=== PATIENT | male | born 1955 | race Caucasian/White ===

== ENCOUNTER 2024-12-17 08:37 | Inpatient (IN) | payer MEDICARE ==
[2024-12-17 09:03] LABS: Basophils # (A) 0.04 10*3/uL (0.00-0.10); Basophils % (A) 0.5 %; Eosinophils # (A) 0.07 10*3/uL (0.04-0.35); HCT 36.5 % (39.6-50.0); HGB 11.4 g/dL (13.0-17.0); Lymphocytes # (A) 1.17 10*3/uL (0.90-5.00); MCH 33.2 pg (27.0-32.0); MCHC 31.2 g/dL (32.0-37.0); MCV 106.4 fL (80.0-97.0); Mean Platelet Volume 9.6 fL (9.5-12.2); Monocytes # (A) 0.65 10*3/uL (0.20-1.00); Monocytes % (A) 8.9 %; Neutrophils # (A) 5.25 10*3/uL (1.80-7.70); Neutrophils % (A) 71.7 %; Platelet Count 146 10*3/uL (140-440); RBC 3.43 10*6/uL (4.40-5.60); RDW 11.3 % (11.5-14.5); WBC 7.32 10*3/uL (4.50-10.00)
[2024-12-17] MEDS: ONDANSETRON 4 MG/2 ML VIAL IVP STA (09:04)
[2024-12-17] MEDS: SODIUM CHLORIDE 0.9% 1,000 ML IV ONE (09:04)
[2024-12-17] MEDS: IPRATROPIUM-ALBUTEROL 3 ML NEB INHALATION STA (09:06)
[2024-12-17] MEDS: methylPREDNISolone SOD SUCCI 125 MG/2 ML VIAL IV STA (09:10)
[2024-12-17 09:15] LABS: VBG PCO2 >98 mmHg (37-51)
[2024-12-17 09:18] LABS: Glucose,Whole Blood 111 mg/dL (70-110)
[2024-12-17 09:20] LABS: INR 0.9 (<1.2); Partial Thromboplastin Time 24.9 sec (22.0-30.0); Prothrombin Time 9.8 sec (10.0-12.5)
--- NOTE | 2024-12-17 09:34 | XR ---
EXAMINATION TYPE: XR chest 1V portable DATE OF EXAM: 12/17/2024 COMPARISON: NONE CLINICAL INDICATION: Male, 69 years old with history of altered mental status; TECHNIQUE: Single frontal view of the chest is obtained. FINDINGS: There is no focal air space opacity, pleural effusion, or pneumothorax seen. The cardiac silhouette size is within normal limits. The osseous structures are intact. IMPRESSION: No acute process. [facility], , 12/17/2024 9:32 AM
[2024-12-17 09:35] LABS: ALT 15 U/L (4-49); AST 29 U/L (17-59); African American GFR (CKD) >90 (>60 ml/min/1.73 sqM); Albumin 3.4 g/dL (3.5-5.0); Alcohol <10 mg/dL; Alkaline Phosphatase 97 U/L (38-126); Blood Urea Nitrogen 14 mg/dL (9-20); Calcium 9.5 mg/dL (8.4-10.2); Chloride 81 mmol/L (98-107); Glucose 92 mg/dL (74-99); Non-African American GFR(CKD) >90 (>60 ml/min/1.73 sqM); Potassium 5.3 mmol/L (3.5-5.1); Sodium 132 mmol/L (137-145); Total Bilirubin 0.3 mg/dL (0.2-1.3); Total Protein 5.8 g/dL (6.3-8.2)
[2024-12-17 09:39] LABS: ABG Oxygen Saturation 99.8 % (94-97); ABG PO2 255 mmHg (83-108); Allen Test Performed? Yes
[2024-12-17 09:41] LABS: Anion Gap 0 mmol/L
[2024-12-17 09:45] LABS: ABG PCO2 >98 mmHg (35-45); ABG PH 7.12 (7.35-7.45)
[2024-12-17 09:48] LABS: Carbon Dioxide 51 mmol/L (22-30)
[2024-12-17 10:06] LABS: Appearance,Urine Clear (Clear); Bilirubin,Urine Negative (Negative); Blood,Urine Trace (Negative); Color,Urine Yellow; Glucose,Urine (UA) Negative (Negative); Ketones,Urine Negative (Negative); Leukocyte Esterase,Urine Negative (Negative); Mucus,Urine Rare /hpf; Nitrite,Urine Negative (Negative); PH, Urine 5.5 (5.0-8.0); Protein,Urine 1+ (Negative); RBC,Urine 8 /hpf (0-5); Specific Gravity,Urine 1.018 (1.001-1.035); Squamous Epithelial Cell,Urine <1 /hpf (0-4); Urobilinogen,Urine <2.0 mg/dL (<2.0); WBC,Urine 3 /hpf (0-5)
[2024-12-17 10:10] LABS: Influenza A Not Detected (Not Detectd); Influenza B Not Detected (Not Detectd); RSV Not Detected (Not Detectd)
[2024-12-17 10:42] LABS: Amphetamine Screen,Urine Not Detected (NotDetected); Barbiturate Screen,Urine Not Detected (NotDetected); Benzodiazepines Screen,Urine Not Detected (NotDetected); Cocaine Screen,Urine Not Detected (NotDetected); Methadone Screen, Urine Not Detected (NotDetected); Opiate Screen,Urine Not Detected (NotDetected); Oxycodone Screen, Urine Not Detected (NotDetected); Phencyclidine Screen,Urine Not Detected (NotDetected); Tricyclic Antidepressant,Urine Not Detected (NotDetected); Urn Cannabinoid Scrn Detected (NotDetected)
--- NOTE | 2024-12-17 11:07 | CT ---
EXAMINATION TYPE: CT brain wo con DATE OF EXAM: 12/17/2024 COMPARISON: None CLINICAL INDICATION: Male, 69 years old with history of Altered mental status; PHH, AMS CT DLP: 1222.4 mGycm Automated exposure control for dose reduction was used. Findings: There is marked metallic artifact in the supraclinoid region possibly aneurysm coil. The ventricles, basal cisterns and sulci over the convexities are within normal limits and there is no mass effect or shift of midline structures. No abnormal density is seen throughout the brain parenchyma and there is no acute intra or extra-axia l hemorrhage. The posterior fossa including the brainstem, fourth ventricle and cerebellar pontine angles appear no rmal. Intraorbital contents appear normal and symmetric. Visualized paranasal sinuses and mastoid air cells are well aerated. The calvarium is intact. IMPRESSION: 1. No acute bleed or mass effect. 2. Metallic artifact in the supraclinoid region likely secondary to aneurysm coiling. [facility], Workstation: [id number] 12/17/2024 11:04 AM
[2024-12-17] MEDS ORDERED: IPRATROPIUM-ALBUTEROL 3 ML NEB INHALATION PRN (11:32)
[2024-12-17] MEDS: SODIUM CHLORIDE 0.9% 1,000 ML IV STA (12:00)
--- NOTE | 2024-12-17 12:25 | P.CNPUL ---
History of Present Illness Consult date: 12/17/24 Requesting physician: Sukhwinder Viramontes Reason for consult: dyspnea, cough, COPD, hypoxemia Chief complaint: Shortness of breath. History of present illness: Pulmonary consult dated December 17, 2024. 69-year-old male with a history of severe COPD. The patient presented to the emergency department, with progressive and worsening shortness of breath, and mental status changes. According to his , he was very lethargic and somnolent, and she could not arouse him. He was brought into the emergency department, to be evaluated, and was seen by Dr. Juarez. The patient had a blood gas done, on 100% oxygen, showing a pO2 of 255, pCO2 of 98, and a pH of 7.12. According to his family, the patient does have very severe COPD. In fact, the patient does smoke still. He does use home oxygen, at 4 L, continuously. He does not use CPAP or BiPAP. The patient recently had cataract surgery as well. In addition to COPD, the patient has a history of a cerebral aneurysm, status post coiling, hypertension, hyperlipidemia, and gout. In terms of his breathing medications, he is on albuterol, and Spiriva. In addition, he uses Brovana, and his nebulizer machine. He does see a [facility] accommodation consultant, in [place]. Current laboratory data includes a white count 7.32, hemoglobin 11.4, hematocrit 36.5, and a platelet count of 146,000. Sodium 132, potassium 5.3, chloride 81, CO2 51, BUN 14, and creatinine 0.63. Glucose is 111. Albumin 3.4. Urine is essentially negative. Drug screen was positive for marijuana. Alcohol less than 10. Viral studies were negative. Chest x-ray was only positive for COPD. No acute abnormalities noted. CT of the brain was negative for anything acute. Review of Systems REVIEW OF SYSTEMS: CONSTITUTIONAL: Negative. NEUROLOGIC: Mental status changes. Lethargy, and somnolence. HEENT: Negative. CARDIAC: Negative. PULMONARY: Shortness of breath. GI: Negative. : Negative. RHEUMATOLOGIC: Negative. IMMUNOLOGIC: Negative. ENDOCRINE: Negative. DERMATOLOGIC: Negative. Past Medical History Past Medical History: COPD, Hyperlipidemia, Hypertension, Myocardial Infarction ([place]) History of Any Multi-Drug Resistant Organisms: None Reported Past Surgical History: Unable to Obtain, Heart Catheterization With Stent Additional Past Surgical History / Comment(s): cataract surgery, brain aneurysm repaired Past Psychological History: No Psychological Hx Reported, Unable to Obtain Smoking Status: Current every day smoker Past Alcohol Use History: Occasional Past Drug Use History: None Reported Medications and Allergies Home Medications Medication Instructions Recorded Confirmed Type Albuterol Sulfate [Ventolin HFA] 2 puff INHALATION RT-Q4H PRN 12/17/24 12/17/24 History Arformoterol Tartrate [Brovana] 15 mcg INHALATION RT-BID 12/17/24 12/17/24 History Aspirin EC [Ecotrin Low Dose] 81 mg PO DAILY 12/17/24 12/17/24 History Atorvastatin [Lipitor] 40 mg PO DAILY 12/17/24 12/17/24 History Enalapril [Vasotec] 20 mg PO DAILY 12/17/24 12/17/24 History Fluticasone Nasal [place] [Flonase 2 spray EA NOSTRIL BID PRN 12/17/24 12/17/24 History Nasal [place]] Mirtazapine [Remeron] 15 mg PO HS 12/17/24 12/17/24 History Prednisolone Acetate/Pf See Taper LEFT EYE DIRECTED 12/17/24 12/17/24 History [Prednisolone Acet 1% Eye Drop] Tiotropium [place] [Spiriva] 1 cap INHALATION RT-DAILY 12/17/24 12/17/24 History allopurinoL [Zyloprim] 300 mg PO DAILY 12/17/24 12/17/24 History carvediloL [Coreg] 6.25 mg PO BID-W/MEALS 12/17/24 12/17/24 History Allergies Allergy/AdvReac Type Severity Reaction Status Date / Time No Known Allergies Allergy Verified 12/17/24 11:49 Physical Exam Osteopathic Statement: *. No significant issues noted on an osteopathic structural exam other than those noted in the History and Physical/Consult. Vitals: Vital Signs Temp Pulse Resp BP Pulse Ox FiO2 12/17/24 12:01 76 14 124/66 97 12/17/24 10:32 50 12/17/24 09:58 77 10 L 137/85 100 12/17/24 09:52 60 12/17/24 09:33 77 12/17/24 09:08 100 12/17/24 09:07 78 12/17/24 08:49 79 16 176/69 100 12/17/24 08:48 100 12/17/24 08:39 98.9 F 80 22 153/83 64 L Intake and Output 12/16/24 12/17/24 12/17/24 22:59 06:59 14:59 Other: Weight 68.039 kg No acute distress, lethargic, does arouse, BiPAP mask in place. Unable to respond verbally. HEENT examination is grossly unremarkable. Neck supple. Full range of motion. No adenopathy thyromegaly or neck vein distention. Cardiovascular examination reveals regular rhythm rate. S1-S2 normal. No S3 or S4. No discernible murmur noted. Heart sounds are distant. Lungs reveal severely diminished bilateral breath sounds. Scattered rhonchi. No wheezes. No crackles. Breath sounds equal bilaterally. Abdomen soft without bowel sounds. No masses. Extremities are intact. No cyanosis clubbing or edema. Skin is without rash or lesion. Neurologic examination reveals the patient to be nonverbal at this time. Very lethargic and somnolent. Results - Laboratory Findings CBC and BMP: 12/17/24 08:46 12/17/24 08:46 ABG ABG pH 7.12 (7.35-7.45) L* 12/17/24 09:33 ABG pCO2 >98 mmHg (35-45) H* 12/17/24 09:33 ABG pO2 255 mmHg (83-108) H 12/17/24 09:33 ABG O2 Saturation 99.8 % (94-97) H 12/17/24 09:33 PT/INR, D-dimer PT 9.8 sec (10.0-12.5) L 12/17/24 08:46 INR 0.9 (<1.2) 12/17/24 08:46 Abnormal lab findings: Abnormal Labs 12/17/24 12/17/24 12/17/24 08:46 08:46 08:46 RBC 3.43 L Hgb 11.4 L Hct 36.5 L MCV 106.4 H MCH 33.2 H MCHC 31.2 L Immature Gran # 0.14 H PT 9.8 L ABG pH ABG pCO2 ABG pO2 ABG O2 Saturation VBG pH VBG pCO2 Hemoglobin Sodium 132 L Potassium 5.3 H Chloride 81 L Carbon Dioxide 51 H* Creatinine 0.63 L POC Glucose (mg/dL) Total Protein 5.8 L Albumin 3.4 L Urine Protein Urine Blood Urine RBC Urine Mucus U Marijuana (THC) Screen 12/17/24 12/17/24 12/17/24 08:46 09:17 09:33 RBC Hgb Hct MCV MCH MCHC Immature Gran # PT ABG pH 7.12 L* ABG pCO2 >98 H* ABG pO2 255 H ABG O2 Saturation 99.8 H VBG pH 7.30 L VBG pCO2 >98 H* Hemoglobin 11.0 L Sodium Potassium Chloride Carbon Dioxide Creatinine POC Glucose (mg/dL) 111 H Total Protein Albumin Urine Protein Urine Blood Urine RBC Urine Mucus U Marijuana (THC) Screen 12/17/24 12/17/24 09:46 09:46 RBC Hgb Hct MCV MCH MCHC Immature Gran # PT ABG pH ABG pCO2 ABG pO2 ABG O2 Saturation VBG pH VBG pCO2 Hemoglobin Sodium Potassium Chloride Carbon Dioxide Creatinine POC Glucose (mg/dL) Total Protein Albumin Urine Protein 1+ H Urine Blood Trace H Urine RBC 8 H Urine Mucus Rare H U Marijuana (THC) Screen Detected H - Diagnostic Findings Chest x-ray: image reviewed Assessment and Plan Assessment: Acute on chronic hypoxemic and hypercapnic respiratory failure, in a patient with severe end-stage COPD. Chronic hypoxemic respiratory failure, on home O2 at 4 L. Ongoing tobacco use with nicotine addiction. History of gout. History of hypertension. History of hyperlipidemia. Recent cataract surgery. History of cerebral aneurysm, status post coiling. Plan: Plan dated December 17, 2024. The patient was seen in the emergency department, ER trauma 2. The patient is currently on BiPAP, with settings of 12/6 and 50%. The patient is a significant CO2 retainer, so oxygen should be titrated down. The patient is placed on appropriate medications, including Solu-Medrol 60 mg every 6 hours, DuoNebs 4 times daily and as needed, and budesonide 1 mg mixed with formoterol 20 mcg, twice a day. We had a long discussion with the and the daughter. The patient is a DO NOT RESUSCITATE/DO NOT INTUBATE patient. They realize that the patient has severe end-stage COPD. We told them that we would do everything short of intubation and mechanical ventilation, to get him turned around. Labs, x-rays, and all medications are reviewed. Chest x-ray does not show anything acute. Prognosis is poor. Dictation was produced using [employer]. Please excuse any grammatical, word or spelling errors. Time with Patient: Greater than 30
[2024-12-17] MEDS: IPRATROPIUM-ALBUTEROL 3 ML NEB INHALATION SCH (12:29)
[2024-12-17] MEDS ORDERED: ONDANSETRON 4 MG/2 ML VIAL IVP PRN (12:40)
[2024-12-17] MEDS ORDERED: NALOXONE 0.4 MG/ML 1 ML VIAL IV PRN (12:40)
--- NOTE | 2024-12-17 12:43 | ED ---
General Adult HPI - General Chief complaint: Altered Mental Status Stated complaint: cardiac issue Time Seen by Provider: 12/17/24 08:40 Source: family, RN/MD, RN notes reviewed, old records reviewed Mode of arrival: EMS - History of Present Illness Initial comments: Patient is a 69-year-old male who presents emergency department for altered mental status. Presents from home. Has a history of COPD on 4 L nasal cannula oxygen, hypertension, hyperlipidemia, CAD. Patient is normally alert and oriented x 4 however currently is alert and oriented x 1 only to his self. Patient is hypoxic on his 4 L nasal cannula oxygen in the 70%'s. Cannot provide any further history. EMS did obtain a EKG that had a lot of artifact present and they called ahead and wanted us to evaluate for possible ST segment elevations. They gave him aspirin as well as nitroglycerin despite the patient not complaining of any chest pain. On evaluation, no evidence of ST segment elevations prior to arrival. I did convey this to the EMS team who provided medications irregardless. - Related Data Home Medications Medication Instructions Recorded Confirmed Albuterol Sulfate [Ventolin HFA] 2 puff INHALATION RT-Q4H PRN 12/17/24 12/17/24 Arformoterol Tartrate [Brovana] 15 mcg INHALATION RT-BID 12/17/24 12/17/24 Aspirin EC [Ecotrin Low Dose] 81 mg PO DAILY 12/17/24 12/17/24 Atorvastatin [Lipitor] 40 mg PO DAILY 12/17/24 12/17/24 Enalapril [Vasotec] 20 mg PO DAILY 12/17/24 12/17/24 Fluticasone Nasal [place] [Flonase 2 spray EA NOSTRIL BID PRN 12/17/24 12/17/24 Nasal [place]] Mirtazapine [Remeron] 15 mg PO HS 12/17/24 12/17/24 Prednisolone Acetate/Pf See Taper LEFT EYE DIRECTED 12/17/24 12/17/24 [Prednisolone Acet 1% Eye Drop] Tiotropium [place] [Spiriva] 1 cap INHALATION RT-DAILY 12/17/24 12/17/24 allopurinoL [Zyloprim] 300 mg PO DAILY 12/17/24 12/17/24 carvediloL [Coreg] 6.25 mg PO BID-W/MEALS 12/17/24 12/17/24 Allergies Allergy/AdvReac Type Severity Reaction Status Date / Time No Known Allergies Allergy Verified 12/17/24 11:49 Review of Systems ROS Statement: Those systems with pertinent positive or pertinent negative responses have been documented in the HPI. ROS Other: All systems not noted in ROS Statement are negative. Past Medical History Past Medical History: COPD, Hyperlipidemia, Hypertension, Myocardial Infarction ([place]) History of Any Multi-Drug Resistant Organisms: None Reported Past Surgical History: Unable to Obtain, Heart Catheterization With Stent Additional Past Surgical History / Comment(s): cataract surgery, brain aneurysm repaired Past Psychological History: No Psychological Hx Reported, Unable to Obtain Smoking Status: Current every day smoker Past Alcohol Use History: Occasional Past Drug Use History: None Reported General Exam - General Exam Comments Initial Comments: General: Appears in no acute distress. HEAD: Normal with no signs of head trauma. EYES: PERRLA, EOMI, conjunctiva normal, no discharge. Pupils are 3 mm and equal bilaterally. ENT: Hearing grossly intact, normal oropharynx. RESPIRATORY: Coarse, bilateral wheezing bilaterally. Hypoxic in the 60% room air, mid 70%'s on 4 L nasal cannula oxygen and 6 L nasal cannula oxygen., 90% on nasal cannula oxygen at 6 L as well as a nonrebreather at 15 L C/V: Regular rate and rhythm. S1 and S2 auscultated, no significant edema, peripheral pulses 2+ and intact throughout ABD: Abd is soft, nontender, nondistended EXT: Normal range of motion, no obvious deformity SKIN: No rashes or lesions observed on exposed skin. NEURO: Alert and oriented x 1. No obvious focal deficits. Difficult to obtain a sufficient neuroexam due to mental status. Course Vital Signs 12/17/24 12/17/24 12/17/24 08:39 08:48 08:49 Temperature 98.9 F Pulse Rate 80 79 Respiratory 22 16 Rate Blood Pressure 153/83 176/69 O2 Sat by Pulse 64 L 100 Oximetry Fraction of 100 Inspired Oxygen (FIO2) 12/17/24 12/17/24 12/17/24 09:07 09:08 09:33 Temperature Pulse Rate 78 77 Respiratory Rate Blood Pressure O2 Sat by Pulse Oximetry Fraction of 100 Inspired Oxygen (FIO2) 12/17/24 12/17/24 12/17/24 09:52 09:58 10:32 Temperature Pulse Rate 77 Respiratory 10 L Rate Blood Pressure 137/85 O2 Sat by Pulse 100 Oximetry Fraction of 60 50 Inspired Oxygen (FIO2) 12/17/24 12/17/24 12/17/24 12:01 12:29 12:33 Temperature Pulse Rate 76 78 Respiratory 14 Rate Blood Pressure 124/66 O2 Sat by Pulse 97 Oximetry Fraction of 50 Inspired Oxygen (FIO2) 12/17/24 12/17/24 12:43 13:07 Temperature Pulse Rate 77 79 Respiratory 14 Rate Blood Pressure 144/77 O2 Sat by Pulse 98 Oximetry Fraction of Inspired Oxygen (FIO2) Procedures - [place] Protocol (Time Out) Nurse: Heidi Mcallister Medical Decision Making - Medical Decision Making Was pt. sent in by a medical professional or institution (, PA, HR REPRESENTATIVE, urgent care, hospital, or penitentiary...) When possible be specific @ -No Did you speak to anyone other than the patient for history (EMS, parent, family, police, friend...)? What history was obtained from this source @ -Spoke with patient's who provided past medical history of patient being more confused over the last 2 days or so as well as increased work of breathing. Did you review nursing and triage notes (agree or disagree)? Why? @ -I reviewed and agree with nursing and triage notes Were old charts reviewed (outside hosp., previous admission, EMS record, old EKG, old radiological studies, urgent care reports/EKG's, penitentiary records)? Report findings @ -Reviewed showing history of COPD Differential Diagnosis (chest pain, altered mental status, abdominal pain women, abdominal pain men, vaginal bleeding, weakness, fever, dyspnea, syncope, headache, dizziness, GI bleed, back pain, seizure, CVA, palpatations, mental health, musculoskeletal)? @ -Differential Altered Mental Status: Hypoglycemia, DKA, hypercapnia, ETOH, overdose, CO poisoning, trauma, myxedema coma, HTN encephalopathy, infection, encephalitis, psychosis, intercranial hemorrhage, hepatic encephalopathy, meningitis, CVA, this is not meant to be an all-inclusive list EKG interpreted by me (3pts min.). @ -As above X-rays interpreted by me (1pt min.). @ -Chest x-ray reveals chronic findings with no evidence of acute pneumonia or acute process CT interpreted by me (1pt min.). @ -CT brain reveals no obvious acute intracranial process. Prior aneurysm coiling present. U/S interpreted by me (1pt. min.). @ -None done What testing was considered but not performed or refused? (CT, X-rays, U/S, labs)? Why? @ -None What meds were considered but not given or refused? Why? @ -None Did you discuss the management of the patient with other professionals (professionals i.e. Dr., PA, HR REPRESENTATIVE, lab, RT, psych nurse, social work supervisor, manager social, teacher, cavalry officer, comp field case manager)? Give summary @ -Discussed with pulmonology, Dr. Us who accepted the consult. Evaluate the patient at bedside and patient determined stable enough to admit to stepdown. Discussed the patient with admitting team, Dr. Ohara who accepted the admi ssion. Was smoking cessation discussed for >3mins.? @ -No Was critical care preformed (if so, how long)? @ -Yes, 41 minutes Were there social determinants of health that impacted care today? How? (H omelessness, low income, unemployed, alcoholism, drug addiction, transportation, low edu. Level, literacy, decrease access to med. care, custodial, rehab)? @ -No Was there de-escalation of care discussed even if they declined (Discuss DNR or withdrawal of care, Hospice)? DNR status @ -Discussed at length with patient's who would like to discuss with her daughter. After discussion, they determined that they will make the patient DNR. Patient is not alert to make his own decision. No prior discussion of prior paperwork regarding this was made per family. What co-morbidities impacted this encounter? (DM, HTN, Smoking, COPD, CAD, Cancer, CVA, ARF, Chemo, Hep., AIDS, mental health diagnosis, sleep apnea, morbid obesity)? @ -COPD, chronic hypoxic respiratory failure. Was patient admitted / discharged? Hospital course, mention meds given and route, prescriptions, significant lab abnormalities, going to OR and other pertinent info. @ -Patient presents with respiratory distress. Vitals remarkable for hypoxia. Patient initially placed on BiPAP after nonrebreather and nasal cannula oxygen only sufficiently bring his oxygenation up to 90%. Patient's work of breathing and hypoxia did improve on BiPAP. Patient administered IV steroids, fluids, as well as multiple DuoNeb breathing treatments. Will obtain broad workup. He is confused at this time. Likely secondary to hypercapnia. EKG showed no signs of acute ischemia. Chest x-ray unremarkable. CT brain unremarkable. Laboratory studies remarkable for a respiratory acidosis and hypercapnia. This is likely the cause of the patient's altered mental status. Remainder the patient's workup relatively unremarkable. No obvious evidence of infection. Urine studies pending at this time. On reevaluation, mentation is improved, as he is now alert and oriented x 2 and more easily arousable. Discussed with patient's family who did make the patient DNR. This includes the as well as daughter. Patient will be admitted to the hospital. Discussed with ICU attending, Dr. Us who evaluated the patient at bedside and he determined that he is stable for admission to [facility]. Discussed with the admitting provider, Dr. Ohara who accepted the admission. Undiagnosed new problem with uncertain prognosis? @ -No Drug Therapy requiring intensive monitoring for toxicity (Heparin, Nitro, Insulin, Cardizem)? @ -No Were any procedures done? @ -No Diagnosis/symptom? @ -Mixed hypoxic and hypercapnic respiratory failure secondary to COPD requiring BiPAP, altered mental status Acute, or Chronic, or Acute on Chronic? @ -Acute Uncomplicated (without systemic symptoms) or Complicated (systemic symptoms)? @ -Complicated Side effects of treatment? @ -No Exacerbation, Progression, or Severe Exacerbation? @ -No Poses a threat to life or bodily function? How? (Chest pain, [place], [place], pneumonia, PE, COPD, DKA, ARF, appy, cholecystitis, CVA, Diverticulitis, Homicidal, Suicidal, threat to staff... and all critical care pts) @ -Yes - Lab Data Result diagrams: 12/17/24 08:46 12/17/24 08:46 Lab Results 12/17/24 12/17/24 12/17/24 Range/Units 08:46 08:46 08:46 WBC 7.32 (4.50-10.00) 10*3/uL RBC 3.43 L (4.40-5.60) 10*6/uL Hgb 11.4 L (13.0-17.0) g/dL Hct 36.5 L (39.6-50.0) % MCV 106.4 H (80.0-97.0) fL MCH 33.2 H (27.0-32.0) pg MCHC 31.2 L (32.0-37.0) g/dL Plt Count 146 (140-440) 10*3/uL MPV 9.6 (9.5-12.2) fL Immature Gran % (Auto) 1.9 % Neutrophils % 71.7 % Lymphocytes % 16.0 % Monocytes % 8.9 % Eosinophils % 1.0 % Basophils % 0.5 % Immature Gran # 0.14 H (0.00-0.04) 10*3/uL Neutrophils # 5.25 (1.80-7.70) 10*3/uL Lymphocytes # 1.17 (0.90-5.00) 10*3/uL Monocytes # 0.65 (0.20-1.00) 10*3/uL Eosinophils # 0.07 (0.04-0.35) 10*3/uL Basophils # 0.04 (0.00-0.10) 10*3/uL Manual Slide Review Performed PT 9.8 L (10.0-12.5) sec INR 0.9 (<1.2) APTT 24.9 (22.0-30.0) sec Sample Site ABG pH (7.35-7.45) ABG pCO2 (35-45) mmHg ABG pO2 (83-108) mmHg ABG O2 Saturation (94-97) % Kristian Test VBG pH (7.31-7.41) VBG pCO2 (37-51) mmHg Hemoglobin (13.0-17.5) gm/dL FiO2 % Sodium 132 L (137-145) mmol/L Potassium 5.3 H (3.5-5.1) mmol/L Chloride 81 L (98-107) mmol/L Carbon Dioxide 51 H* (22-30) mmol/L Anion Gap 0 mmol/L BUN 14 (9-20) mg/dL Creatinine 0.63 L (0.66-1.25) mg/dL Est GFR (CKD-EPI)AfAm >90 (>60 ml/min/1.73 sqM) Est GFR (CKD-EPI)NonAf >90 (>60 ml/min/1.73 sqM) Glucose 92 (74-99) mg/dL POC Glucose (mg/dL) (70-110) mg/dL POC Glu Biomedical Electronics Technician ID Calcium 9.5 (8.4-10.2) mg/dL Total Bilirubin 0.3 (0.2-1.3) mg/dL AST 29 (17-59) U/L ALT 15 (4-49) U/L Alkaline Phosphatase 97 (38-126) U/L Ammonia (<30) umol/L Troponin I (0.000-0.034) ng/mL Total Protein 5.8 L (6.3-8.2) g/dL Albumin 3.4 L (3.5-5.0) g/dL Urine Color Urine Appearance (Clear) Urine pH (5.0-8.0) Ur Specific [place] (1.001-1.035) Urine Protein (Negative) Urine Glucose (UA) (Negative) Urine Ketones (Negative) Urine Blood (Negative) Urine Nitrite (Negative) Urine Bilirubin (Negative) Urine Urobilinogen (<2.0) mg/dL Ur Leukocyte Esterase (Negative) Urine RBC (0-5) /hpf Urine WBC (0-5) /hpf Ur Squamous Epith Cells (0-4) /hpf Urine Mucus (None) /hpf Urine Opiates Screen (NotDetected) Ur Oxycodone Screen (NotDetected) Urine Methadone Screen (NotDetected) Ur Barbiturates Screen (NotDetected) U Tricyclic Antidepress (NotDetected) Ur Phencyclidine Scrn (NotDetected) Ur Amphetamines Screen (NotDetected) U Methamphetamines Scrn (NotDetected) U Benzodiazepines Scrn (NotDetected) Urine Cocaine Screen (NotDetected) U Marijuana (THC) Screen (NotDetected) Serum Alcohol <10 mg/dL Influenza Type A (PCR) (Not Detectd) Influenza Type B (PCR) (Not Detectd) RSV (PCR) (Not Detectd) SARS-CoV-2 (PCR) (Not Detectd) 12/17/24 12/17/24 12/17/24 Range/Units 08:46 08:46 08:46 WBC (4.50-10.00) 10*3/uL RBC (4.40-5.60) 10*6/uL Hgb (13.0-17.0) g/dL Hct (39.6-50.0) % MCV (80.0-97.0) fL MCH (27.0-32.0) pg MCHC (32.0-37.0) g/dL Plt Count (140-440) 10*3/uL MPV (9.5-12.2) fL Immature Gran % (Auto) % Neutrophils % % Lymphocytes % % Monocytes % % Eosinophils % % Basophils % % Immature Gran # (0.00-0.04) 10*3/uL Neutrophils # (1.80-7.70) 10*3/uL Lymphocytes # (0.90-5.00) 10*3/uL Monocytes # (0.20-1.00) 10*3/uL Eosinophils # (0.04-0.35) 10*3/uL Basophils # (0.00-0.10) 10*3/uL Manual Slide Review PT (10.0-12.5) sec INR (<1.2) APTT (22.0-30.0) sec Sample Site ABG pH (7.35-7.45) ABG pCO2 (35-45) mmHg ABG pO2 (83-108) mmHg ABG O2 Saturation (94-97) % Kristian Test VBG pH 7.30 L (7.31-7.41) VBG pCO2 >98 H* (37-51) mmHg Hemoglobin (13.0-17.5) gm/dL FiO2 % Sodium (137-145) mmol/L Potassium (3.5-5.1) mmol/L Chloride (98-107) mmol/L Carbon Dioxide (22-30) mmol/L Anion Gap mmol/L BUN (9-20) mg/dL Creatinine (0.66-1.25) mg/dL Est GFR (CKD-EPI)AfAm (>60 ml/min/1.73 sqM) Est GFR (CKD-EPI)NonAf (>60 ml/min/1.73 sqM) Glucose (74-99) mg/dL POC Glucose (mg/dL) (70-110) mg/dL POC Glu Biomedical Electronics Technician ID Calcium (8.4-10.2) mg/dL Total Bilirubin (0.2-1.3) mg/dL AST (17-59) U/L ALT (4-49) U/L Alkaline Phosphatase (38-126) U/L Ammonia 20 (<30) umol/L Troponin I 0.019 (0.000-0.034) ng/mL Total Protein (6.3-8.2) g/dL Albumin (3.5-5.0) g/dL Urine Color Urine Appearance (Clear) Urine pH (5.0-8.0) Ur Specific [place] (1.001-1.035) Urine Protein (Negative) Urine Glucose (UA) (Negative) Urine Ketones (Negative) Urine Blood (Negative) Urine Nitrite (Negative) Urine Bilirubin (Negative) Urine Urobilinogen (<2.0) mg/dL Ur Leukocyte Esterase (Negative) Urine RBC (0-5) /hpf Urine WBC (0-5) /hpf Ur Squamous Epith Cells (0-4) /hpf Urine Mucus (None) /hpf Urine Opiates Screen (NotDetected) Ur Oxycodone Screen (NotDetected) Urine Methadone Screen (NotDetected) Ur Barbiturates Screen (NotDetected) U Tricyclic Antidepress (NotDetected) Ur Phencyclidine Scrn (NotDetected) Ur Amphetamines Screen (NotDetected) U Methamphetamines Scrn (NotDetected) U Benzodiazepines Scrn (NotDetected) Urine Cocaine Screen (NotDetected) U Marijuana (THC) Screen (NotDetected) Serum Alcohol mg/dL Influenza Type A (PCR) (Not Detectd) Influenza Type B (PCR) (Not Detectd) RSV (PCR) (Not Detectd) SARS-CoV-2 (PCR) (Not Detectd) 12/17/24 12/17/24 12/17/24 Range/Units 09:17 09:29 09:33 WBC (4.50-10.00) 10*3/uL RBC (4.40-5.60) 10*6/uL Hgb (13.0-17.0) g/dL Hct (39.6-50.0) % MCV (80.0-97.0) fL MCH (27.0-32.0) pg MCHC (32.0-37.0) g/dL Plt Count (140-440) 10*3/uL MPV (9.5-12.2) fL Immature Gran % (Auto) % Neutrophils % % Lymphocytes % % Monocytes % % Eosinophils % % Basophils % % Immature Gran # (0.00-0.04) 10*3/uL Neutrophils # (1.80-7.70) 10*3/uL Lymphocytes # (0.90-5.00) 10*3/uL Monocytes # (0.20-1.00) 10*3/uL Eosinophils # (0.04-0.35) 10*3/uL Basophils # (0.00-0.10) 10*3/uL Manual Slide Review PT (10.0-12.5) sec INR (<1.2) APTT (22.0-30.0) sec Sample Site Left Radial ABG pH 7.12 L* (7.35-7.45) ABG pCO2 >98 H* (35-45) mmHg ABG pO2 255 H (83-108) mmHg ABG O2 Saturation 99.8 H (94-97) % Kristian Test Yes VBG pH (7.31-7.41) VBG pCO2 (37-51) mmHg Hemoglobin 11.0 L (13.0-17.5) gm/dL FiO2 100 % Sodium (137-145) mmol/L Potassium (3.5-5.1) mmol/L Chloride (98-107) mmol/L Carbon Dioxide (22-30) mmol/L Anion Gap mmol/L BUN (9-20) mg/dL Creatinine (0.66-1.25) mg/dL Est GFR (CKD-EPI)AfAm (>60 ml/min/1.73 sqM) Est GFR (CKD-EPI)NonAf (>60 ml/min/1.73 sqM) Glucose (74-99) mg/dL POC Glucose (mg/dL) 111 H (70-110) mg/dL POC Glu Biomedical Electronics Technician ID Kristian [place] Calcium (8.4-10.2) mg/dL Total Bilirubin (0.2-1.3) mg/dL AST (17-59) U/L ALT (4-49) U/L Alkaline Phosphatase (38-126) U/L Ammonia (<30) umol/L Troponin I (0.000-0.034) ng/mL Total Protein (6.3-8.2) g/dL Albumin (3.5-5.0) g/dL Urine Color Urine Appearance (Clear) Urine pH (5.0-8.0) Ur Specific [place] (1.001-1.035) Urine Protein (Negative) Urine Glucose (UA) (Negative) Urine Ketones (Negative) Urine Blood (Negative) Urine Nitrite (Negative) Urine Bilirubin (Negative) Urine Urobilinogen (<2.0) mg/dL Ur Leukocyte Esterase (Negative) Urine RBC (0-5) /hpf Urine WBC (0-5) /hpf Ur Squamous Epith Cells (0-4) /hpf Urine Mucus (None) /hpf Urine Opiates Screen (NotDetected) Ur Oxycodone Screen (NotDetected) Urine Methadone Screen (NotDetected) Ur Barbiturates Screen (NotDetected) U Tricyclic Antidepress (NotDetected) Ur Phencyclidine Scrn (NotDetected) Ur Amphetamines Screen (NotDetected) U Methamphetamines Scrn (NotDetected) U Benzodiazepines Scrn (NotDetected) Urine Cocaine Screen (NotDetected) U Marijuana (THC) Screen (NotDetected) Serum Alcohol mg/dL Influenza Type A (PCR) Not Detected (Not Detectd) Influenza Type B (PCR) Not Detected (Not Detectd) RSV (PCR) Not Detected (Not Detectd) SARS-CoV-2 (PCR) Not Detected (Not Detectd) 12/17/24 12/17/24 Range/Units 09:46 09:46 WBC (4.50-10.00) 10*3/uL RBC (4.40-5.60) 10*6/uL Hgb (13.0-17.0) g/dL Hct (39.6-50.0) % MCV (80.0-97.0) fL MCH (27.0-32.0) pg MCHC (32.0-37.0) g/dL Plt Count (140-440) 10*3/uL MPV (9.5-12.2) fL Immature Gran % (Auto) % Neutrophils % % Lymphocytes % % Monocytes % % Eosinophils % % Basophils % % Immature Gran # (0.00-0.04) 10*3/uL Neutrophils # (1.80-7.70) 10*3/uL Lymphocytes # (0.90-5.00) 10*3/uL Monocytes # (0.20-1.00) 10*3/uL Eosinophils # (0.04-0.35) 10*3/uL Basophils # (0.00-0.10) 10*3/uL Manual Slide Review PT (10.0-12.5) sec INR (<1.2) APTT (22.0-30.0) sec Sample Site ABG pH (7.35-7.45) ABG pCO2 (35-45) mmHg ABG pO2 (83-108) mmHg ABG O2 Saturation (94-97) % Kristian Test VBG pH (7.31-7.41) VBG pCO2 (37-51) mmHg Hemoglobin (13.0-17.5) gm/dL FiO2 % Sodium (137-145) mmol/L Potassium (3.5-5.1) mmol/L Chloride (98-107) mmol/L Carbon Dioxide (22-30) mmol/L Anion Gap mmol/L BUN (9-20) mg/dL Creatinine (0.66-1.25) mg/dL Est GFR (CKD-EPI)AfAm (>60 ml/min/1.73 sqM) Est GFR (CKD-EPI)NonAf (>60 ml/min/1.73 sqM) Glucose (74-99) mg/dL POC Glucose (mg/dL) (70-110) mg/dL POC Glu Biomedical Electronics Technician ID Calcium (8.4-10.2) mg/dL Total Bilirubin (0.2-1.3) mg/dL AST (17-59) U/L ALT (4-49) U/L Alkaline Phosphatase (38-126) U/L Ammonia (<30) umol/L Troponin I (0.000-0.034) ng/mL Total Protein (6.3-8.2) g/dL Albumin (3.5-5.0) g/dL Urine Color Yellow Urine Appearance Clear (Clear) Urine pH 5.5 (5.0-8.0) Ur Specific [place] 1.018 (1.001-1.035) Urine Protein 1+ H (Negative) Urine Glucose (UA) Negative (Negative) Urine Ketones Negative (Negative) Urine Blood Trace H (Negative) Urine Nitrite Negative (Negative) Urine Bilirubin Negative (Negative) Urine Urobilinogen <2.0 (<2.0) mg/dL Ur Leukocyte Esterase Negative (Negative) Urine RBC 8 H (0-5) /hpf Urine WBC 3 (0-5) /hpf Ur Squamous Epith Cells <1 (0-4) /hpf Urine Mucus Rare H (None) /hpf Urine Opiates Screen Not Detected (NotDetected) Ur Oxycodone Screen Not Detected (NotDetected) Urine Methadone Screen Not Detected (NotDetected) Ur Barbiturates Screen Not Detected (NotDetected) U Tricyclic Antidepress Not Detected (NotDetected) Ur Phencyclidine Scrn Not Detected (NotDetected) Ur Amphetamines Screen Not Detected (NotDetected) U Methamphetamines Scrn Not Detected (NotDetected) U Benzodiazepines Scrn Not Detected (NotDetected) Urine Cocaine Screen Not Detected (NotDetected) U Marijuana (THC) Screen Detected H (NotDetected) Serum Alcohol mg/dL Influenza Type A (PCR) (Not Detectd) Influenza Type B (PCR) (Not Detectd) RSV (PCR) (Not Detectd) SARS-CoV-2 (PCR) (Not Detectd) - EKG Data -: EKG Interpreted by Me EKG Comments: 12-lead Electrocardiogram Interpretation Note EKG was reviewed and interpreted by myself. 12-lead ECG performed at 0909 is interpreted by me as revealing normal sinus rhythm at a rate of 76 beats per minute. [place] is leftward deviated. MA interval is 168 ms, QRS durations 140 ms, QTc is 426 ms.. There were no ST or T wave abnormalities to suggest myoca rdial ischemia or injury. R wave progression across the precordium was satisfactory. By my interpretation this EKG is non-diagnostic for acute ischemia. Critical Care Time Critical Care Time: Yes Total Critical Care Time: 41 Disposition Clinical Impression: Hypercapnic respiratory failure, Altered mental status, Hypoxic respiratory failure, COPD (chronic obstructive pulmonary disease), BiPAP (biphasic positive airway pressure) dependence Disposition: ADMITTED IP TO THIS HOSP Condition: Serious Time of Disposition: 12:00
[2024-12-17] MEDS: methylPREDNISolone SOD SUCCI 125 MG/2 ML VIAL IV SCH (14:39)
--- NOTE | 2024-12-17 15:31 | P.HPIM ---
History of Present Illness H&P Date: 12/17/24 History of present illness: 69-year-old male with past medical history significant for severe COPD on 4 L oxygen at baseline, history of cerebral aneurysm status post coiling, gout history of hypertension, hyperlipidemia, [place], history of cardiac catheterization who presented to ER with family for altered mental status, progressively worsening shortness of breath and productive cough. Patient's and daughter at bedside, they reported that patient was very lethargic and somnolent, was unable to arouse. Family reported severe COPD, on 4 L oxygen at baseline, current smoker, does not use CPAP or BiPAP, recently had a cataract surgery. Patient is poor historian, currently on BiPAP. Blood gases in the ED done on 100% oxygen showed pO2 255 pCO2 98, pH 7.12. Home inhalers include albuterol, Spiriva. In addition he uses Brovana, nebulizer machine. Patient follows with broadcast technician in [place]. Patient is afebrile, heart rate 79, respiratory rate 13, blood pressure 147/67, saturating 96% on BiPAP with 50% FiO2. WBC 7.3 hemoglobin 11.4 platelet 146. Sodium 132 potassium 5.3 chloride 81 CO2 51 BUN 14 creatinine 0.63. ABG showed pH 7.12, PaCO2 more than 98, PO2 255. Chest x-ray negative for acute process. Urine drug screen positive for marijuana. COVID influenza and RSV PCR negative. Assessment and plan: Acute on chronic hypoxic hypercapnic respiratory failure: Severe end-stage COPD: Chronic hypoxic respiratory failure on 4 L oxygen at baseline Ongoing tobacco use: Acute metabolic encephalopathy: Brought in for altered mental status, worsening shortness of breath, cough. ABG showed severe hypercapnia with pCO2 of more than 98 Requiring BiPAP Continue breathing treatment/bronchodilator protocol, Solu-Medrol Pulmonary consulted. History of hypertension Hyperlipidemia Recent cataract surgery History of cerebral aneurysm s/p coiling Gout: DVT prophylaxis Subcutaneous Lovenox CODE STATUS: DNR limited Monitor vital signs and labs Labs and medication were reviewed. Continue same treatment. Further recommendations as per clinical course of the patient PHYSICAL EXAMINATION: GENERAL: Currently BiPAP HEENT: EOMI, Sclerae anicteric, Moist Mucous membranes Neck: Supple, Non tender, No JVD PULMONARY: Equal breath souds B/L, No wheezing, No crackles. CARDIOVASCULAR: S1, S2 present. No murmurs, rubs, or gallops. ABDOMEN: Soft, nontender, nondistended, normoactive bowel sounds. No guarding or rebound tenderness. MUSCULOSKELETAL: No edema, No cyanosis. No clubbing. Normal ROM. Intact p eripheral pulses. NEUROLOGICAL: CN 2-12 grossly intact. No FND REVIEW OF SYSTEMS: Limited due to altered mental status. CONSTITUTIONAL: No fever, no malaise, no fatigue. HEENT: No recent visual problems or hearing problems. Denied any sore throat. CARDIOVASCULAR: No chest pain, orthopnea, PND, no palpitations, no syncope. PULMONARY: Complains of shortness of breath, productive cough. GASTROINTESTINAL: No diarrhea, no nausea, no vomiting, no abdominal pain. NEUROLOGICAL: No headaches, no weakness, no numbness. HEMATOLOGICAL: Denies any bleeding or petechiae. GENITOURINARY: Denies any burning micturition, frequency, or urgency. MUSCULOSKELETAL/RHEUMATOLOGICAL: Denies any joint pain, swelling, or any muscle pain. ENDOCRINE: Denies any polyuria or polydipsia. The rest of the 14-point review of systems is negative. Dictation was produced using [employer] software. please excuse any grammatical, word or spelling errors. Past Medical History Past Medical History: COPD, Hyperlipidemia, Hypertension, Myocardial Infarction ([place]) Last Myocardial Infarction Date:: 1999 History of Any Multi-Drug Resistant Organisms: None Reported Past Surgical History: Unable to Obtain, Heart Catheterization With Stent Additional Past Surgical History / Comment(s): cataract surgery, brain aneurysm repaired Date of Last Stent Placement:: 1999 Past Psychological History: No Psychological Hx Reported, Unable to Obtain Smoking Status: Current every day smoker Past Alcohol Use History: Occasional Past Drug Use History: None Reported Medications and Allergies Home Medications Medication Instructions Recorded Confirmed Type Albuterol Sulfate [Ventolin HFA] 2 puff INHALATION RT-Q4H PRN 12/17/24 12/17/24 History Arformoterol Tartrate [Brovana] 15 mcg INHALATION RT-BID 12/17/24 12/17/24 History Aspirin EC [Ecotrin Low Dose] 81 mg PO DAILY 12/17/24 12/17/24 History Atorvastatin [Lipitor] 40 mg PO DAILY 12/17/24 12/17/24 History Enalapril [Vasotec] 20 mg PO DAILY 12/17/24 12/17/24 History Fluticasone Nasal [place] [Flonase 2 spray EA NOSTRIL BID PRN 12/17/24 12/17/24 History Nasal [place]] Mirtazapine [Remeron] 15 mg PO HS 12/17/24 12/17/24 History Prednisolone Acetate/Pf See Taper LEFT EYE DIRECTED 12/17/24 12/17/24 History [Prednisolone Acet 1% Eye Drop] Tiotropium [place] [Spiriva] 1 cap INHALATION RT-DAILY 12/17/24 12/17/24 History allopurinoL [Zyloprim] 300 mg PO DAILY 12/17/24 12/17/24 History carvediloL [Coreg] 6.25 mg PO BID-W/MEALS 12/17/24 12/17/24 History Allergies Allergy/AdvReac Type Severity Reaction Status Date / Time No Known Allergies Allergy Verified 12/17/24 11:49 Physical Exam Vitals: Vital Signs Temp Pulse Pulse Resp BP BP Pulse Ox 12/17/24 14:47 13 12/17/24 14:06 98.8 F 76 147/67 96 12/17/24 13:07 79 14 144/77 98 12/17/24 12:43 77 12/17/24 12:33 12/17/24 12:29 78 12/17/24 12:01 76 14 124/66 97 12/17/24 10:32 12/17/24 09:58 77 10 L 137/85 100 12/17/24 09:52 12/17/24 09:33 77 12/17/24 09:08 12/17/24 09:07 78 12/17/24 08:49 79 16 176/69 100 12/17/24 08:48 12/17/24 08:39 98.9 F 80 22 153/83 64 L FiO2 12/17/24 14:47 12/17/24 14:06 50 12/17/24 13:07 12/17/24 12:43 12/17/24 12:33 50 12/17/24 12:29 12/17/24 12:01 12/17/24 10:32 50 12/17/24 09:58 12/17/24 09:52 60 12/17/24 09:33 12/17/24 09:08 100 12/17/24 09:07 12/17/24 08:49 12/17/24 08:48 100 12/17/24 08:39 Intake and Output 12/17/24 12/17/24 12/17/24 06:59 14:59 22:59 Intake Total 20 Balance 20 Intake: IV 20 Invasive Line 1 10 Invasive Line 2 10 Other: Voiding Method External Catheter # Voids 1 Weight 68.039 kg Results CBC & Chem 7: 12/17/24 08:46 12/17/24 08:46 Labs: Abnormal Lab Results - Last 24 Hours (Table) 12/17/24 12/17/24 12/17/24 Range/Units 08:46 08:46 08:46 RBC 3.43 L (4.40-5.60) 10*6/uL Hgb 11.4 L (13.0-17.0) g/dL Hct 36.5 L (39.6-50.0) % MCV 106.4 H (80.0-97.0) fL MCH 33.2 H (27.0-32.0) pg MCHC 31.2 L (32.0-37.0) g/dL Immature Gran # 0.14 H (0.00-0.04) 10*3/uL PT 9.8 L (10.0-12.5) sec ABG pH (7.35-7.45) ABG pCO2 (35-45) mmHg ABG pO2 (83-108) mmHg ABG O2 Saturation (94-97) % VBG pH (7.31-7.41) VBG pCO2 (37-51) mmHg Hemoglobin (13.0-17.5) gm/dL Sodium 132 L (137-145) mmol/L Potassium 5.3 H (3.5-5.1) mmol/L Chloride 81 L (98-107) mmol/L Carbon Dioxide 51 H* (22-30) mmol/L Creatinine 0.63 L (0.66-1.25) mg/dL POC Glucose (mg/dL) (70-110) mg/dL Total Protein 5.8 L (6.3-8.2) g/dL Albumin 3.4 L (3.5-5.0) g/dL Urine Protein (Negative) Urine Blood (Negative) Urine RBC (0-5) /hpf Urine Mucus (None) /hpf U Marijuana (THC) Screen (NotDetected) 12/17/24 12/17/24 12/17/24 Range/Units 08:46 09:17 09:33 RBC (4.40-5.60) 10*6/uL Hgb (13.0-17.0) g/dL Hct (39.6-50.0) % MCV (80.0-97.0) fL MCH (27.0-32.0) pg MCHC (32.0-37.0) g/dL Immature Gran # (0.00-0.04) 10*3/uL PT (10.0-12.5) sec ABG pH 7.12 L* (7.35-7.45) ABG pCO2 >98 H* (35-45) mmHg ABG pO2 255 H (83-108) mmHg ABG O2 Saturation 99.8 H (94-97) % VBG pH 7.30 L (7.31-7.41) VBG pCO2 >98 H* (37-51) mmHg Hemoglobin 11.0 L (13.0-17.5) gm/dL Sodium (137-145) mmol/L Potassium (3.5-5.1) mmol/L Chloride (98-107) mmol/L Carbon Dioxide (22-30) mmol/L Creatinine (0.66-1.25) mg/dL POC Glucose (mg/dL) 111 H (70-110) mg/dL Total Protein (6.3-8.2) g/dL Albumin (3.5-5.0) g/dL Urine Protein (Negative) Urine Blood (Negative) Urine RBC (0-5) /hpf Urine Mucus (None) /hpf U Marijuana (THC) Screen (NotDetected) 12/17/24 12/17/24 Range/Units 09:46 09:46 RBC (4.40-5.60) 10*6/uL Hgb (13.0-17.0) g/dL Hct (39.6-50.0) % MCV (80.0-97.0) fL MCH (27.0-32.0) pg MCHC (32.0-37.0) g/dL Immature Gran # (0.00-0.04) 10*3/uL PT (10.0-12.5) sec ABG pH (7.35-7.45) ABG pCO2 (35-45) mmHg ABG pO2 (83-108) mmHg ABG O2 Saturation (94-97) % VBG pH (7.31-7.41) VBG pCO2 (37-51) mmHg Hemoglobin (13.0-17.5) gm/dL Sodium (137-145) mmol/L Potassium (3.5-5.1) mmol/L Chloride (98-107) mmol/L Carbon Dioxide (22-30) mmol/L Creatinine (0.66-1.25) mg/dL POC Glucose (mg/dL) (70-110) mg/dL Total Protein (6.3-8.2) g/dL Albumin (3.5-5.0) g/dL Urine Protein 1+ H (Negative) Urine Blood Trace H (Negative) Urine RBC 8 H (0-5) /hpf Urine Mucus Rare H (None) /hpf U Marijuana (THC) Screen Detected H (NotDetected) Thrombosis Risk Factor Assmnt - Choose All That Apply Any of the Below Risk Factors Present?: Yes Each Factor Represents 1 point: Abnormal pulmonary function (COPD) Each Risk Factor Represents 2 Points: Age 61-74 years Thrombosis Risk Factor Assessment Total Risk Factor Score: 3 Thrombosis Risk Factor Assessment Level: Moderate Risk
[2024-12-17] MEDS ORDERED: methylPREDNISolone SOD SUCCI 40 MG/ML 1 ML VIAL IV SCH (16:00)
[2024-12-17 16:26] LABS: Glucose,Whole Blood 102 mg/dL (70-110)
[2024-12-17] MEDS: ACETAMINOPHEN IV (For NPO) 500 MG in EMPTY BAG 1 BAG IVPB PRN (17:06)
[2024-12-17] MEDS: carvediloL 6.25 MG TAB PO SCH (17:07)
[2024-12-17 19:58] LABS: Glucose,Whole Blood 132 mg/dL (70-110)
[2024-12-17] MEDS: FORMOTEROL FUMARATE 20 MCG/2 ML NEBU INHALATION SCH (21:22)
[2024-12-17] MEDS: BUDESONIDE 1 MG/2 ML NEBU INHALATION SCH (21:22)
[2024-12-18 06:04] LABS: Glucose,Whole Blood 139 mg/dL (70-110)
[2024-12-18 07:20] LABS: HCT 31.9 % (39.6-50.0); Immature Platelet Fraction 3.7 % (1.1-6.1); Lymphocytes # (A) 0.57 10*3/uL (0.90-5.00); MCH 32.7 pg (27.0-32.0); MCHC 31.3 g/dL (32.0-37.0); MCV 104.2 fL (80.0-97.0); Mean Platelet Volume 10.2 fL (9.5-12.2); Monocytes # (A) 0.31 10*3/uL (0.20-1.00); Monocytes % (A) 4.9 %; Neutrophils % (A) 85.5 %; Platelet Count 137 10*3/uL (140-440); RBC 3.06 10*6/uL (4.40-5.60); RDW 11.5 % (11.5-14.5); WBC 6.32 10*3/uL (4.50-10.00)
[2024-12-18 07:37] LABS: ALT 17 U/L (4-49); AST 29 U/L (17-59); African American GFR (CKD) >90 (>60 ml/min/1.73 sqM); Albumin 3.4 g/dL (3.5-5.0); Alkaline Phosphatase 75 U/L (38-126); Blood Urea Nitrogen 25 mg/dL (9-20); Calcium 9.4 mg/dL (8.4-10.2); Chloride 81 mmol/L (98-107); Glucose 130 mg/dL (74-99); Non-African American GFR(CKD) 89 (>60 ml/min/1.73 sqM); Potassium 4.6 mmol/L (3.5-5.1); Sodium 131 mmol/L (137-145); Total Bilirubin 0.5 mg/dL (0.2-1.3); Total Protein 5.7 g/dL (6.3-8.2)
[2024-12-18 07:43] LABS: Anion Gap 0 mmol/L
[2024-12-18 08:04] LABS: Carbon Dioxide 50 mmol/L (22-30)
[2024-12-18] MEDS: ENOXAPARIN 40 MG/0.4 ML SYRINGE SQ SCH (08:04)
--- NOTE | 2024-12-18 09:28 | P.PN ---
Subjective Progress Note Date: 12/18/24 Principal diagnosis: Respiratory failure. Pulmonary consult dated December 17, 2024. 69-year-old male with a history of severe COPD. The patient presented to the emergency department, with progressive and worsening shortness of breath, and mental status changes. According to his , he was very lethargic and somnolent, and she could not arouse him. He was brought into the emergency department, to be evaluated, and was seen by Dr. Juarez. The patient had a blood gas done, on 100% oxygen, showing a pO2 of 255, pCO2 of 98, and a pH of 7.12. According to his family, the patient does have very severe COPD. In fact, the patient does smoke still. He does use home oxygen, at 4 L, continuously. He does not use CPAP or BiPAP. The patient recently had cataract surgery as well. In addition to COPD, the patient has a history of a cerebral aneurysm, status post coiling, hypertension, hyperlipidemia, and gout. In terms of his breathing medications, he is on albuterol, and Spiriva. In addition, he uses Brovana, and his nebulizer machine. He does see a heating equipment repairer, in [place]. Current laboratory data includes a white count 7.32, hemoglobin 11.4, hematocrit 36.5, and a platelet count of 146,000. Sodium 132, potassium 5.3, chloride 81, CO2 51, BUN 14, and creatinine 0.63. Glucose is 111. Albumin 3.4. Urine is essentially negative. Drug screen was positive for marijuana. Alcohol less than 10. Viral studies were negative. Chest x-ray was only positive for COPD. No acute abnormalities noted. CT of the brain was negative for anything acute. Progress note dated December 18, 2024. This is a 69-year-old male with a history of end-stage COPD. He was seen in the emergency department yesterday. He continues on BiPAP, with settings of 12/6, 50%. Is getting saline at 10 cc an hour. The patient is a DO NOT RESUSCITATE/DO NOT INTUBATE patient. We clarified that yesterday with his and daughter. Current laboratory data includes a white count of 6.3, hemoglobin 10, macro 31.9, and a platelet count of 137,000. Sodium 131, potassium 4.6, chloride 81, CO2 50, BUN 25, creatinine 0.84. Albumin is 3.4. Glucose 139. Objective - Vital Signs Vital signs: Vital Signs Temp 98.7 F 12/18/24 07:52 Pulse 80 12/18/24 08:18 Resp 14 12/18/24 07:52 BP 176/87 12/18/24 07:52 Pulse Ox 99 12/18/24 07:52 FiO2 50 12/18/24 07:52 Intake & Output 12/17/24 12/18/24 12/18/24 18:59 06:59 18:59 Intake Total 20 0 10 Output Total 575 525 Balance -555 -525 10 Weight 68.039 kg 70.5 kg Intake: IV 20 10 Invasive Line 1 10 Invasive Line 2 10 10 Oral 0 Output: Urine 575 525 Uretheral (Irvin) 425 Other: Voiding Method External Catheter External Catheter Indwelling Catheter # Voids 1 1 - Exam No acute distress, lethargic, does arouse, BiPAP mask in place. Poorly responsive. HEENT examination is grossly unremarkable. Neck supple. Full range of motion. No adenopathy thyromegaly or neck vein distention. Cardiovascular examination reveals regular rhythm rate. S1-S2 normal. No S3 or S4. No discernible murmur noted. Heart sounds are distant. Lungs reveal severely diminished bilateral breath sounds. Scattered rhonchi. No wheezes. No crackles. Breath sounds equal bilaterally. Abdomen soft without bowel sounds. No masses. Extremities are intact. No cyanosis clubbing or edema. Skin is without rash or lesion. Neurologic examination reveals the patient to be nonverbal at this time. Very lethargic and somnolent. - Labs CBC & Chem 7: 12/18/24 06:07 12/18/24 06:07 Labs: Abnormal Lab Results - Last 24 Hours (Table) 12/17/24 12/17/24 12/17/24 Range/Units 08:46 09:33 09:46 RBC (4.40-5.60) 10*6/uL Hgb (13.0-17.0) g/dL Hct (39.6-50.0) % MCV (80.0-97.0) fL MCH (27.0-32.0) pg MCHC (32.0-37.0) g/dL Plt Count (140-440) 10*3/uL Lymphocytes # (0.90-5.00) 10*3/uL Eosinophils # (0.04-0.35) 10*3/uL ABG pH 7.12 L* (7.35-7.45) ABG pCO2 >98 H* (35-45) mmHg ABG pO2 255 H (83-108) mmHg ABG O2 Saturation 99.8 H (94-97) % Hemoglobin 11.0 L (13.0-17.5) gm/dL Sodium 132 L (137-145) mmol/L Potassium 5.3 H (3.5-5.1) mmol/L Chloride 81 L (98-107) mmol/L Carbon Dioxide 51 H* (22-30) mmol/L BUN (9-20) mg/dL Creatinine 0.63 L (0.66-1.25) mg/dL Glucose (74-99) mg/dL POC Glucose (mg/dL) (70-110) mg/dL Total Protein 5.8 L (6.3-8.2) g/dL Albumin 3.4 L (3.5-5.0) g/dL Urine Protein (Negative) Urine Blood (Negative) Urine RBC (0-5) /hpf Urine Mucus (None) /hpf U Marijuana (THC) Screen Detected H (NotDetected) 12/17/24 12/17/24 12/18/24 Range/Units 09:46 19:57 06:03 RBC (4.40-5.60) 10*6/uL Hgb (13.0-17.0) g/dL Hct (39.6-50.0) % MCV (80.0-97.0) fL MCH (27.0-32.0) pg MCHC (32.0-37.0) g/dL Plt Count (140-440) 10*3/uL Lymphocytes # (0.90-5.00) 10*3/uL Eosinophils # (0.04-0.35) 10*3/uL ABG pH (7.35-7.45) ABG pCO2 (35-45) mmHg ABG pO2 (83-108) mmHg ABG O2 Saturation (94-97) % Hemoglobin (13.0-17.5) gm/dL Sodium (137-145) mmol/L Potassium (3.5-5.1) mmol/L Chloride (98-107) mmol/L Carbon Dioxide (22-30) mmol/L BUN (9-20) mg/dL Creatinine (0.66-1.25) mg/dL Glucose (74-99) mg/dL POC Glucose (mg/dL) 132 H 139 H (70-110) mg/dL Total Protein (6.3-8.2) g/dL Albumin (3.5-5.0) g/dL Urine Protein 1+ H (Negative) Urine Blood Trace H (Negative) Urine RBC 8 H (0-5) /hpf Urine Mucus Rare H (None) /hpf U Marijuana (THC) Screen (NotDetected) 12/18/24 12/18/24 Range/Units 06:07 06:07 RBC 3.06 L (4.40-5.60) 10*6/uL Hgb 10.0 L (13.0-17.0) g/dL Hct 31.9 L (39.6-50.0) % MCV 104.2 H (80.0-97.0) fL MCH 32.7 H (27.0-32.0) pg MCHC 31.3 L (32.0-37.0) g/dL Plt Count 137 L (140-440) 10*3/uL Lymphocytes # 0.57 L (0.90-5.00) 10*3/uL Eosinophils # 0.00 L (0.04-0.35) 10*3/uL ABG pH (7.35-7.45) ABG pCO2 (35-45) mmHg ABG pO2 (83-108) mmHg ABG O2 Saturation (94-97) % Hemoglobin (13.0-17.5) gm/dL Sodium 131 L (137-145) mmol/L Potassium (3.5-5.1) mmol/L Chloride 81 L (98-107) mmol/L Carbon Dioxide 50 H* (22-30) mmol/L BUN 25 H (9-20) mg/dL Creatinine (0.66-1.25) mg/dL Glucose 130 H (74-99) mg/dL POC Glucose (mg/dL) (70-110) mg/dL Total Protein 5.7 L (6.3-8.2) g/dL Albumin 3.4 L (3.5-5.0) g/dL Urine Protein (Negative) Urine Blood (Negative) Urine RBC (0-5) /hpf Urine Mucus (None) /hpf U Marijuana (THC) Screen (NotDetected) Assessment and Plan Assessment: Acute on chronic hypoxemic and hypercapnic respiratory failure, in a patient with severe end-stage COPD. Chronic hypoxemic respiratory failure, on home O2 at 4 L. Ongoing tobacco use with nicotine addiction. History of gout. History of hypertension. History of hyperlipidemia. Recent cataract surgery. History of cerebral aneurysm, status post coiling. Plan: Plan dated December 17, 2024. The patient was seen in the emergency department, ER trauma 2. The patient is currently on BiPAP, with settings of 12/6 and 50%. The patient is a significant CO2 retainer, so oxygen should be titrated down. The patient is placed on appropriate medications, including Solu-Medrol 60 mg every 6 hours, DuoNebs 4 times daily and as needed, and budesonide 1 mg mixed with formoterol 20 mcg, twice a day. We had a long discussion with the and the daughter. The patient is a DO NOT RESUSCITATE/DO NOT INTUBATE patient. They realize that the patient has severe end-stage COPD. We told them that we would do everything short of intubation and mechanical ventilation, to get him turned around. Labs, x-rays, and all medications are reviewed. Chest x-ray does not show anything acute. Prognosis is poor. Dictation was produced using [employer] software. Please excuse any grammatical, word or spelling errors. Plan dated December 18, 2024. The patient is seen today in room 353. All labs, x-rays, and medications are reviewed. The patient is a bit more responsive today than it was yesterday. The patient is a DO NOT RESUSCITATE/DO NOT INTUBATE patient. We clarified that with the patient's and daughter, in the emergency department yesterday. We will continue to follow make recommendations along the way. Again overall prognosis remains poor. Dictation was produced using [employer] software. Please excuse any grammatical, word or spelling errors. Time with Patient: Less than 30
[2024-12-18 11:31] LABS: Glucose,Whole Blood 138 mg/dL (70-110)
[2024-12-18] MEDS: ATORVASTATIN 40 MG TAB PO SCH (11:56)
[2024-12-18] MEDS: lisinopriL 20 MG TAB PO SCH (11:56)
[2024-12-18] MEDS: ASPIRIN 81 MG PO SCH (11:56)
[2024-12-18] MEDS: allopurinoL 300 MG TAB PO SCH (11:56)
--- NOTE | 2024-12-18 13:20 | P.PN ---
Subjective Progress Note Date: 12/18/24 Interval History: History of present illness: 69-year-old male with past medical history significant for severe COPD on 4 L oxygen at baseline, history of cerebral aneurysm status post coiling, gout history of hypertension, hyperlipidemia, [place], history of cardiac catheterization who presented to ER with family for altered mental status, progressively worsening shortness of breath and productive cough. Patient's and daughter at bedside, they reported that patient was very lethargic and somnolent, was unable to arouse. Family reported severe COPD, on 4 L oxygen at baseline, current smoker, does not use CPAP or BiPAP, recently had a cataract surgery. Patient is poor historian, currently on BiPAP. Blood gases in the ED done on 100% oxygen showed pO2 255 pCO2 98, pH 7.12. Home inhalers include albuterol, Spiriva. In addition he uses Brovana, nebulizer machine. Patient follows with medical transcriber [place]. Patient is afebrile, heart rate 79, respiratory rate 13, blood pressure 147/67, saturating 96% on BiPAP with 50% FiO2. WBC 7.3 hemoglobin 11.4 platelet 146. Sodium 132 potassium 5.3 chloride 81 CO2 51 BUN 14 creatinine 0.63. ABG showed pH 7.12, PaCO2 more than 98, PO2 255. Chest x-ray negative for acute process. Urine drug screen positive for marijuana. COVID influenza and RSV PCR negative. 12/18/24--patient was seen and examined today. Patient tolerated BiPAP overnight. Patient was on setting of 12 x 6, 50% FiO2. Patient is DNR limited. Family at bedside including and daughter. Temperature 99.2 F, heart rate 85 respiratory rate 14 blood pressure 177/86, taken off BiPAP, switch to nasal cannula oxygen later in the day. Pulmonary following. Assessment and plan: Acute on chronic hypoxic hypercapnic respiratory failure: Severe end-stage COPD: Chronic hypoxic respiratory failure on 4 L oxygen at baseline Ongoing tobacco use: Acute metabolic encephalopathy: Brought in for altered mental status, worsening shortness of breath, cough. ABG showed severe hypercapnia with pCO2 of more than 98 Requiring BiPAP Continue breathing treatment/bronchodilator protocol, Solu-Medrol Pulmonary consulted. History of hypertension Hyperlipidemia Recent cataract surgery History of cerebral aneurysm s/p coiling Gout: DVT prophylaxis Subcutaneous Lovenox CODE STATUS: DNR limited Monitor vital signs and labs Labs and medication were reviewed. Continue same treatment. Further recommendations as per clinical course of the patient PHYSICAL EXAMINATION: GENERAL: A&O x 3. Ill-appearing. HEENT: EOMI, Sclerae anicteric, Moist Mucous membranes Neck: Supple, Non tender, No JVD PULMONARY: Equal breath souds B/L, No wheezing, No crackles. CARDIOVASCULAR: S1, S2 present. No murmurs, rubs, or gallops. ABDOMEN: Soft, nontender, nondistended, normoactive bowel sounds. No guarding or rebound tenderness. MUSCULOSKELETAL: No edema, No cyanosis. No clubbing. Normal ROM. Intact peripheral pulses. NEUROLOGICAL: CN 2-12 grossly intact. No FND REVIEW OF SYSTEMS: CONSTITUTIONAL: No fever or chills. CARDIOVASCULAR: No chest pain, palpitations or syncope. PULMONARY: No shortness of breath, no cough, sore throat. GASTROINTESTINAL: No nausea, vomiting, diarrhea, abdominal pain. : No Dysuria, urgency, frequency. Extremities: No edema. NEUROLOGICAL: No headaches, no weakness, or numbness Dictation was produced using [employer] dictation software. please excuse any grammatical, word or spelling errors. Objective - Vital Signs Vital signs: Vital Signs Temp 99.2 F 12/18/24 11:47 Pulse 85 12/18/24 11:47 Resp 14 12/18/24 11:47 BP 177/86 12/18/24 11:47 Pulse Ox 99 12/18/24 11:47 FiO2 50 12/18/24 11:35 Intake & Output 12/17/24 12/18/24 12/18/24 18:59 06:59 18:59 Intake Total 20 0 10 Output Total 575 525 250 Balance -500 -525 -617 Weight 68.039 kg 70.5 kg Intake: IV 20 10 Invasive Line 1 10 Invasive Line 2 10 10 Oral 0 Output: Urine 575 525 250 Uretheral (Irvin) 425 Other: Voiding Method External Catheter External Catheter Indwelling Catheter # Voids 1 1 - Labs CBC & Chem 7: 12/18/24 06:07 12/18/24 06:07 Labs: Abnormal Lab Results - Last 24 Hours (Table) 12/17/24 12/18/24 12/18/24 Range/Units 19:57 06:03 06:07 RBC 3.06 L (4.40-5.60) 10*6/uL Hgb 10.0 L (13.0-17.0) g/dL Hct 31.9 L (39.6-50.0) % MCV 104.2 H (80.0-97.0) fL MCH 32.7 H (27.0-32.0) pg MCHC 31.3 L (32.0-37.0) g/dL Plt Count 137 L (140-440) 10*3/uL Lymphocytes # 0.57 L (0.90-5.00) 10*3/uL Eosinophils # 0.00 L (0.04-0.35) 10*3/uL Sodium (137-145) mmol/L Chloride (98-107) mmol/L Carbon Dioxide (22-30) mmol/L BUN (9-20) mg/dL Glucose (74-99) mg/dL POC Glucose (mg/dL) 132 H 139 H (70-110) mg/dL Total Protein (6.3-8.2) g/dL Albumin (3.5-5.0) g/dL 12/18/24 12/18/24 Range/Units 06:07 11:29 RBC (4.40-5.60) 10*6/uL Hgb (13.0-17.0) g/dL Hct (39.6-50.0) % MCV (80.0-97.0) fL MCH (27.0-32.0) pg MCHC (32.0-37.0) g/dL Plt Count (140-440) 10*3/uL Lymphocytes # (0.90-5.00) 10*3/uL Eosinophils # (0.04-0.35) 10*3/uL Sodium 131 L (137-145) mmol/L Chloride 81 L (98-107) mmol/L Carbon Dioxide 50 H* (22-30) mmol/L BUN 25 H (9-20) mg/dL Glucose 130 H (74-99) mg/dL POC Glucose (mg/dL) 138 H (70-110) mg/dL Total Protein 5.7 L (6.3-8.2) g/dL Albumin 3.4 L (3.5-5.0) g/dL
[2024-12-18 16:26] LABS: Glucose,Whole Blood 162 mg/dL (70-110)
[2024-12-18] MEDS: ACETAMINOPHEN TAB 325 MG TAB PO PRN (16:39)
[2024-12-18] MEDS: INSULIN LISPRO (HumaLOG) 100 UNIT/ML 10 mL VL SQ SCH (17:49)
[2024-12-18 19:51] LABS: Glucose,Whole Blood 264 mg/dL (70-110)
[2024-12-19 05:46] LABS: Glucose,Whole Blood 139 mg/dL (70-110)
[2024-12-19 06:37] LABS: African American GFR (CKD) >90 (>60 ml/min/1.73 sqM); Blood Urea Nitrogen 30 mg/dL (9-20); Calcium 9.5 mg/dL (8.4-10.2); Chloride 84 mmol/L (98-107); Glucose 123 mg/dL (74-99); Non-African American GFR(CKD) >90 (>60 ml/min/1.73 sqM); Sodium 133 mmol/L (137-145)
[2024-12-19 06:44] LABS: Anion Gap -1 mmol/L; Carbon Dioxide 50 mmol/L (22-30)
[2024-12-19 07:19] LABS: HCT 33.5 % (39.6-50.0); HGB 11.1 g/dL (13.0-17.0); Lymphocytes # (A) 0.39 10*3/uL (0.90-5.00); Lymphocytes % (A) 5.8 %; MCH 33.1 pg (27.0-32.0); MCHC 33.1 g/dL (32.0-37.0); Mean Platelet Volume 10.2 fL (9.5-12.2); Monocytes # (A) 0.29 10*3/uL (0.20-1.00); Monocytes % (A) 4.3 %; Neutrophils # (A) 6.02 10*3/uL (1.80-7.70); Neutrophils % (A) 89.5 %; Platelet Count 142 10*3/uL (140-440); RBC 3.35 10*6/uL (4.40-5.60); RDW 11.5 % (11.5-14.5); WBC 6.73 10*3/uL (4.50-10.00)
[2024-12-19 11:55] LABS: Glucose,Whole Blood 165 mg/dL (70-110)
--- NOTE | 2024-12-19 14:22 | P.PN ---
Subjective Progress Note Date: 12/19/24 69-year-old male with a history of severe COPD. The patient presented to the emergency department, with progressive and worsening shortness of breath, and mental status changes. According to his , he was very lethargic and somnolent, and she could not arouse him. He was brought into the emergency department, to be evaluated, and was seen by Dr. Juarez. The patient had a blood gas done, on 100% oxygen, showing a pO2 of 255, pCO2 of 98, and a pH of 7.12. According to his family, the patient does have very severe COPD. In fact, the patient does smoke still. He does use home oxygen, at 4 L, continuously. He does not use CPAP or BiPAP. The patient recently had cataract surgery as well. In addition to COPD, the patient has a history of a cerebral aneurysm, status post coiling, hypertension, hyperlipidemia, and gout. In terms of his breathing medications, he is on albuterol, and Spiriva. In addition, he uses Brovana, and his nebulizer machine. He does see a model maker fiberglass, in [facility]. Current laboratory data includes a white count 7.32, hemoglobin 11.4, hematocrit 36.5, and a platelet count of 146,000. Sodium 132, potassium 5.3, chloride 81, CO2 51, BUN 14, and creatinine 0.63. Glucose is 111. Albumin 3.4. Urine is essentially negative. Drug screen was positive for marijuana. Alcohol less than 10. Viral studies were negative. Chest x-ray was only positive for COPD. No acute abnormalities noted. CT of the brain was negative for anything acute. Progress note dated December 18, 2024. This is a 69-year-old male with a history of end-stage COPD. He was seen in the emergency department yesterday. He continues on BiPAP, with settings of 12/, 50%. Is getting saline at 10 cc an hour. The patient is a DO NOT RESUSCITATE/DO NOT INTUBATE patient. We clarified that yesterday with his and daughter. Current laboratory data includes a white count of 6.3, hemoglobin 10, macro 31.9, and a platelet count of 137,000. Sodium 131, potassium 4.6, chloride 81, CO2 50, BUN 25, creatinine 0.84. Albumin is 3.4. Glucose 139. On 12/19/2024, the patient is being seen for a follow-up. This patient is known to have advanced end-stage COPD. He was hospitalized for an acute exacerbation the patient was supported with a BiPAP pressure of over 6 and remained supp orted. Earlier this morning, the patient was taken off the BiPAP and is currently on 4 L of oxygen nasal cannula. is at the bedside. No signs of any hypercapnia. No sleepiness. Denies having any chest pain. No significant shortness of breath at rest. Remains on bronchodilators. Remains on steroids. No evidence of any pneumonia. The white cell count at 6.7 with a hemoglobin 11.1 and a platelet count of 142. Serum bicarb is at 50 and sodium levels at 133 and a potassium level is at 4.0. Noted initial blood That was done while patient being on a BiPAP showed a pH of 7.12 with a pCO2 of more than 98 and pO2 of 255. The patient is currently on 4 L of O2 nasal cannula. He remains on DuoNeb updrafts. Remains on Perforomist and Pulmicort nebulized treatments twice a day and IV Solu-Medrol 60 mg every 6 hours. No major edema in lower extremities. No other new complaints otherwise for now. Objective - Vital Signs Vital signs: Vital Signs Temp 98.5 F 12/19/24 04:20 Pulse 80 12/19/24 09:22 Resp 18 12/19/24 04:20 BP 188/66 12/19/24 04:20 Pulse Ox 100 12/19/24 04:20 FiO2 50 12/19/24 04:20 Intake & Output 12/18/24 12/19/24 12/19/24 18:59 06:59 18:59 Intake Total 490 Output Total 650 300 Balance -160 -300 Weight 64.5 kg Intake: IV 10 Invasive Line 2 10 Oral 480 Output: Urine 650 300 Other: Voiding Method Indwelling Catheter Indwelling Catheter - Exam The patient appeared well nourished and normally developed. Vital signs as documented. The patient is thin and frail. No significant dyspnea at rest. No signs of any CO2 narcosis and the patient's body mass index is 20.4 Head exam is unremarkable. No scleral icterus or corneal arcus noted. Neck is without jugular venous distension, thyromegaly, or carotid bruits. Carotid upstrokes are brisk bilaterally. Lungs are showing marked diminished breath sounds bilaterally. Scattered expiratory wheezes in the exhalation phase is quite prolonged. Cardiac exam reveals the PMI to be normally sized and situated. Rhythm is r egular. First and second heart sounds normal. No murmurs, rubs or gallops. Abdominal exam reveals normal bowel sounds, no masses, no organomegaly and no aortic enlargement. Extremities are nonedematous and both femoral and pedal pulses are normal. Examination of the skin revealed no evidence of significant rashes, suspicious appearing nevi or other concerning lesions. Neurologically, the patient is awake and alert and the patient does not have any focal neurological deficit. Cranial nerves are essentially intact. - Labs CBC & Chem 7: 12/19/24 05:42 12/19/24 05:42 Labs: Abnormal Lab Results - Last 24 Hours (Table) 12/18/24 12/18/24 12/18/24 Range/Units 11:29 16:25 19:49 RBC (4.40-5.60) 10*6/uL Hgb (13.0-17.0) g/dL Hct (39.6-50.0) % MCV (80.0-97.0) fL MCH (27.0-32.0) pg Lymphocytes # (0.90-5.00) 10*3/uL Eosinophils # (0.04-0.35) 10*3/uL Sodium (137-145) mmol/L Chloride (98-107) mmol/L Carbon Dioxide (22-30) mmol/L BUN (9-20) mg/dL Glucose (74-99) mg/dL POC Glucose (mg/dL) 138 H 162 H 264 H (70-110) mg/dL 12/19/24 12/19/24 12/19/24 Range/Units 05:42 05:42 05:44 RBC 3.35 L (4.40-5.60) 10*6/uL Hgb 11.1 L (13.0-17.0) g/dL Hct 33.5 L (39.6-50.0) % MCV 100.0 H (80.0-97.0) fL MCH 33.1 H (27.0-32.0) pg Lymphocytes # 0.39 L (0.90-5.00) 10*3/uL Eosinophils # 0.00 L (0.04-0.35) 10*3/uL Sodium 133 L (137-145) mmol/L Chloride 84 L (98-107) mmol/L Carbon Dioxide 50 H* (22-30) mmol/L BUN 30 H (9-20) mg/dL Glucose 123 H (74-99) mg/dL POC Glucose (mg/dL) 139 H (70-110) mg/dL Assessment and Plan Plan: Acute on chronic hypoxemic and hypercapnic respiratory failure, in a patient with severe end-stage COPD with COPD exacerbation. The patient was supported with the BiPAP and the patient is currently on 4 L of oxygen nasal cannula. No signs of any CO2 narcosis. The patient seems to be much more comfortable and the patient was taken off the BiPAP. No evidence of any pneumonia. Chronic hypoxemic respiratory failure, on home O2 at 4 L. Ongoing tobacco use with nicotine addiction. History of gout. History of hypertension. History of hyperlipidemia. Recent cataract surgery. History of cerebral aneurysm, status post coiling. Severe metabolic alkalosis secondary to chronic hypercapnic respiratory failure Plan: Immediate smoking cessation counseling was done. BiPAP on and off during the day and overnight Continue bronchodilators Continue Perforomist and Pulmicort and resume his twice a day Continue IV Solu-Medrol Give the patient Diamox 500 mg IV every 12 hours and repeat the blood gas within the next 24 to 48 hours Titrate oxygen flow to maintain saturation above 90%, currently on 4 L Will continue to follow. DNR/DNI CODE STATUS. Time with Patient: Greater than 30
[2024-12-19 16:07] LABS: Glucose,Whole Blood 167 mg/dL (70-110)
[2024-12-19 20:17] LABS: Glucose,Whole Blood 409 mg/dL (70-110)
[2024-12-19] MEDS: INSULIN GLARGINE (LANTUS) 100 UNIT/ML SYR SQ SCH (22:59)
--- NOTE | 2024-12-19 23:21 | P.PN ---
Subjective Progress Note Date: 12/19/24 Interval History: History of present illness: 69-year-old male with past medical history significant for severe COPD on 4 L oxygen at baseline, history of cerebral aneurysm status post coiling, gout histo ry of hypertension, hyperlipidemia, AL, history of cardiac catheterization who presented to ER with family for altered mental status, progressively worsening shortness of breath and productive cough. Patient's and daughter at bedside, they reported that patient was very lethargic and somnolent, was unable to arouse. Family reported severe COPD, on 4 L oxygen at baseline, current smoker, does not use CPAP or BiPAP, recently had a cataract surgery. Patient is poor historian, currently on BiPAP. Blood gases in the ED done on 100% oxygen showed pO2 255 pCO2 98, pH 7.12. Home inhalers include albuterol, Spiriva. In addition he uses Brovana, nebulizer machine. Patient follows with warehouse coordinator in second. Patient is afebrile, heart rate 79, respiratory rate 13, blood pressure 147/67, saturating 96% on BiPAP with 50% FiO2. WBC 7.3 hemoglobin 11.4 platelet 146. Sodium 132 potassium 5.3 chloride 81 CO2 51 BUN 14 creatinine 0.63. ABG showed pH 7.12, PaCO2 more than 98, PO2 255. Chest x-ray negative for acute process. Urine drug screen positive for marijuana. COVID influenza and RSV PCR negative. 12/18/24--patient was seen and examined today. Patient tolerated BiPAP overnight. Patient was on setting of 12 x 6, 50% FiO2. Patient is DNR limited. Family at bedside including and daughter. Temperature 99.2 F, heart rate 85 respiratory rate 14 blood pressure 177/86, taken off BiPAP, switch to nasal cannula oxygen later in the day. Pulmonary following. 12/19/2024 Patient is seen in follow-up today with pulmonary following closely. Patient is off BiPAP currently wearing 4 L via nasal cannula. Patient continues to be extremely dyspneic with minimal exertion. Patient is being given Diamox over the next 24 hours per pulmonary gang saw operator and monitor for further clinical improvements. Patient mentation is somewhat improved today. Encouraged to increase activity as tolerated and recommend PT/OT therapy evaluation as well Review of systems: Constitutional: No reports of fatigue, fever, or chills Cardiovascular: No reports of chest pain or palpitations Respiratory:reports of shortness of breath and weak cough GI: No reports of nausea, vomiting, or diarrhea : No reports of dysuria or retention Neurovascular: reports of generalized weakness All medications have been reviewed PHYSICAL EXAMINATION: GENERAL: A&O x 3. Ill-appearing. Well-developed, thin build, elderly appearing HEENT: EOMI, Sclerae anicteric, Moist Mucous membranes Neck: Supple, Non tender, No JVD PULMONARY: Equal breath souds B/L, No wheezing, No crackles. Coarse rhonchi not ed bilaterally CARDIOVASCULAR: S1, S2 muffled ABDOMEN: Soft, nontender, nondistended, normoactive bowel sounds. No guarding or rebound tenderness. MUSCULOSKELETAL: No edema, No cyanosis. No clubbing. Normal ROM. Intact peripheral pulses. NEUROLOGICAL: CN 2-12 grossly intact. No FND diffusely weak Assessment: Acute on chronic hypoxic hypercapnic respiratory failure: Secondary to severe end-stage COPD Chronic hypoxic respiratory failure on 4 L oxygen at baseline Continued ongoing tobacco use Acute metabolic encephalopathy: Possibly secondary to severe hypercapnia, improved and at baseline History of hypertension Hyperlipidemia Recent cataract surgery History of cerebral aneurysm s/p coiling Gout history Mild protein calorie malnutrition with a BMI of 20.4 DVT prophylaxis GI prophylaxis CODE STATUS no code Plan: Patient is maintained on IV steroids along with [id number] breathing treatments and weaning FiO2 as tolerated. Patient is off BiPAP this morning intermittently using at night. Patient chronically wears oxygen outpatient and is currently maintained on 4 L. Patient will be given Diamox for 24 hours per pulmonary gang saw operator monitor for improvements in respiratory status Encourage increase activity as tolerated Will have PT/OT therapy evaluate the patient. Family at the bedside reports patient will be going home on discharge. Patient is no code The impression and plan of care has been dictated by Bethany Jim, Nurse Practitioner as directed. Dr. Margi MD I have performed a history and examination and MDM of this patient, discussed the same with the dictator, and agree with the dictator's assessment and plan as written ,documented as a scribe. Based on total visit time, I have performed more than 50% of the visit. Objective - Vital Signs Vital signs: Vital Signs Temp 98.5 F 12/19/24 04:20 Pulse 80 12/19/24 09:22 Resp 18 12/19/24 04:20 BP 188/66 12/19/24 04:20 Pulse Ox 100 12/19/24 04:20 FiO2 50 12/19/24 04:20 Intake & Output 12/18/24 12/19/24 12/19/24 18:59 06:59 18:59 Intake Total 490 Output Total 650 300 Balance -160 -300 Weight 64.5 kg Intake: IV 10 Invasive Line 2 10 Oral 480 Output: Urine 650 300 Other: Voiding Method Indwelling Catheter Indwelling Catheter - Labs CBC & Chem 7: 12/19/24 05:42 12/19/24 05:42 Labs: Abnormal Lab Results - Last 24 Hours (Table) 12/18/24 12/18/24 12/18/24 Range/Units 11:29 16:25 19:49 RBC (4.40-5.60) 10*6/uL Hgb (13.0-17.0) g/dL Hct (39.6-50.0) % MCV (80.0-97.0) fL MCH (27.0-32.0) pg Lymphocytes # (0.90-5.00) 10*3/uL Eosinophils # (0.04-0.35) 10*3/uL Sodium (137-145) mmol/L Chloride (98-107) mmol/L Carbon Dioxide (22-30) mmol/L BUN (9-20) mg/dL Glucose (74-99) mg/dL POC Glucose (mg/dL) 138 H 162 H 264 H (70-110) mg/dL 12/19/24 12/19/24 12/19/24 Range/Units 05:42 05:42 05:44 RBC 3.35 L (4.40-5.60) 10*6/uL Hgb 11.1 L (13.0-17.0) g/dL Hct 33.5 L (39.6-50.0) % MCV 100.0 H (80.0-97.0) fL MCH 33.1 H (27.0-32.0) pg Lymphocytes # 0.39 L (0.90-5.00) 10*3/uL Eosinophils # 0.00 L (0.04-0.35) 10*3/uL Sodium 133 L (137-145) mmol/L Chloride 84 L (98-107) mmol/L Carbon Dioxide 50 H* (22-30) mmol/L BUN 30 H (9-20) mg/dL Glucose 123 H (74-99) mg/dL POC Glucose (mg/dL) 139 H (70-110) mg/dL
[2024-12-19] MEDS ORDERED: SENNOSIDES 8.6 MG TAB PO PRN (23:22)
[2024-12-20 06:01] LABS: Glucose,Whole Blood 134 mg/dL (70-110)
[2024-12-20] MEDS: PANTOPRAZOLE 40 MG TABLET PO SCH (06:28)
[2024-12-20] MEDS: TAMSULOSIN 0.4 MG CAP.ER.24H PO SCH (08:25)
[2024-12-20 08:30] LABS: African American GFR (CKD) 88 (>60 ml/min/1.73 sqM); Blood Urea Nitrogen 27 mg/dL (9-20); Calcium 9.6 mg/dL (8.4-10.2); Chloride 91 mmol/L (98-107); Glucose 113 mg/dL (74-99); Non-African American GFR(CKD) 77 (>60 ml/min/1.73 sqM); Potassium 3.6 mmol/L (3.5-5.1); Sodium 138 mmol/L (137-145)
[2024-12-20 08:37] LABS: Anion Gap 8 mmol/L
[2024-12-20 08:38] LABS: Carbon Dioxide 39 mmol/L (22-30)
[2024-12-20 12:08] LABS: Glucose,Whole Blood 135 mg/dL (70-110)
--- NOTE | 2024-12-20 15:38 | P.PN ---
Subjective Progress Note Date: 12/20/24 69-year-old male with a history of severe COPD. The patient presented to the emergency department, with progressive and worsening shortness of breath, and mental status changes. According to his , he was very lethargic and somnolent, and she could not arouse him. He was brought into the emergency department, to be evaluated, and was seen by Dr. Juarez. The patient had a blood gas done, on 100% oxygen, showing a pO2 of 255, pCO2 of 98, and a pH of 7.12. According to his family, the patient does have very severe COPD. In fact, the patient does smoke still. He does use home oxygen, at 4 L, continuously. He does not use CPAP or BiPAP. The patient recently had cataract surgery as well. In addition to COPD, the patient has a history of a cerebral aneurysm, status post coiling, hypertension, hyperlipidemia, and gout. In terms of his breathing medications, he is on albuterol, and Spiriva. In addition, he uses Brovana, and his nebulizer machine. He does see a outpatient coordinator, in [facility]. Current laboratory data includes a white count 7.32, hemoglobin 11.4, hematocrit 36.5, and a platelet count of 146,000. Sodium 132, potassium 5.3, chloride 81, CO2 51, BUN 14, and creatinine 0.63. Glucose is 111. Albumin 3.4. Urine is essentially negative. Drug screen was positive for marijuana. Alcohol less than 10. Viral studies were negative. Chest x-ray was only positive for COPD. No acute abnormalities noted. CT of the brain was negative for anything acute. Progress note dated December 18, 2024. This is a 69-year-old male with a history of end-stage COPD. He was seen in the emergency department yesterday. He continues on BiPAP, with settings of 12/, 50%. Is getting saline at 10 cc an hour. The patient is a DO NOT RESUSCITATE/DO NOT INTUBATE patient. We clarified that yesterday with his and daughter. Current laboratory data includes a white count of 6.3, hemoglobin 10, macro 31.9, and a platelet count of 137,000. Sodium 131, potassium 4.6, chloride 81, CO2 50, BUN 25, creatinine 0.84. Albumin is 3.4. Glucose 139. On 12/19/2024, the patient is being seen for a follow-up. This patient is known to have advanced end-stage COPD. He was hospitalized for an acute exacerbation the patient was supported with a BiPAP pressure of over 6 and remained supp orted. Earlier this morning, the patient was taken off the BiPAP and is currently on 4 L of oxygen nasal cannula. is at the bedside. No signs of any hypercapnia. No sleepiness. Denies having any chest pain. No significant shortness of breath at rest. Remains on bronchodilators. Remains on steroids. No evidence of any pneumonia. The white cell count at 6.7 with a hemoglobin 11.1 and a platelet count of 142. Serum bicarb is at 50 and sodium levels at 133 and a potassium level is at 4.0. Noted initial blood That was done while patient being on a BiPAP showed a pH of 7.12 with a pCO2 of more than 98 and pO2 of 255. The patient is currently on 4 L of O2 nasal cannula. He remains on DuoNeb updrafts. Remains on Perforomist and Pulmicort nebulized treatments twice a day and IV Solu-Medrol 60 mg every 6 hours. No major edema in lower extremities. No other new complaints otherwise for now. On today's evaluation of 12/20/2024, the patient continues to improve. Seems to be less shortness of breath. Will try the BiPAP overnight and the patient is currently on oxygen at 4 L. The patient denies having any chest pain. Shortness of breath is also improving. The patient advanced COPD and he was hospitalized for an acute CF exacerbation. He also had a component of severe metabolic alkalosis, given Diamox and his serum bicarb is currently down to 39. Sodium levels at 138, potassium level is at 3.6 and a chloride is 91. Remains on DuoNeb treatments on the clock. Remains on IV Solu-Medrol. Objective - Vital Signs Vital signs: Vital Signs Temp 98.4 F 12/20/24 08:20 Pulse 77 12/20/24 08:20 Resp 19 12/20/24 08:20 BP 131/72 12/20/24 08:20 Pulse Ox 98 12/20/24 08:20 FiO2 50 12/20/24 04:31 Intake & Output 12/19/24 12/20/24 12/20/24 18:59 06:59 18:59 Intake Total 240 10 Output Total 1150 1625 Balance -910 -1615 Weight 63 kg Intake: IV 10 0.9 10 Oral 240 Output: Urine 1150 1625 Other: Voiding Method Indwelling Catheter Indwelling Catheter Indwelling Catheter # Voids 0 # Bowel Movements 0 - Exam The patient appeared well nourished and normally developed. Vital signs as documented. The patient is thin and frail. No significant dyspnea at rest. No signs of any CO2 narcosis and the patient's body mass index is 20.4 Head exam is unremarkable. No scleral icterus or corneal arcus noted. Neck is without jugular venous distension, thyromegaly, or carotid bruits. Carotid upstrokes are brisk bilaterally. Lungs are showing marked diminished breath sounds bilaterally. Scattered expiratory wheezes in the exhalation phase is quite prolonged. Cardiac exam reveals the PMI to be normally sized and situated. Rhythm is regular. First and second heart sounds normal. No murmurs, rubs or gallops. Abdominal exam reveals normal bowel sounds, no masses, no organomegaly and no aortic enlargement. Extremities are nonedematous and both femoral and pedal pulses are normal. Examination of the skin revealed no evidence of significant rashes, suspicious appearing nevi or other concerning lesions. Neurologically, the patient is awake and alert and the patient does not have any focal neurological deficit. Cranial nerves are essentially intact. - Labs CBC & Chem 7: 12/19/24 05:42 12/20/24 06:25 Labs: Abnormal Lab Results - Last 24 Hours (Table) 12/19/24 12/19/24 12/19/24 Range/Units 11:53 16:06 20:15 Chloride (98-107) mmol/L Carbon Dioxide (22-30) mmol/L BUN (9-20) mg/dL Glucose (74-99) mg/dL POC Glucose (mg/dL) 165 H 167 H 409 H (70-110) mg/dL 12/20/24 12/20/24 Range/Units 06:00 06:25 Chloride 91 L (98-107) mmol/L Carbon Dioxide 39 H (22-30) mmol/L BUN 27 H (9-20) mg/dL Glucose 113 H (74-99) mg/dL POC Glucose (mg/dL) 134 H (70-110) mg/dL Assessment and Plan Plan: Acute on chronic hypoxemic and hypercapnic respiratory failure, in a patient with severe end-stage COPD with COPD exacerbation. The patient was supported with the BiPAP and the patient is currently on 4 L of oxygen nasal cannula. No signs of any CO2 narcosis. The patient seems to be much more comfortable and the patient was taken off the BiPAP. No evidence of any pneumonia. Chronic hypoxemic respiratory failure, on home O2 at 4 L. Ongoing tobacco use with nicotine addiction. History of gout. History of hypertension. History of hyperlipidemia. Recent cataract surgery. History of cerebral aneurysm, status post coiling. Severe metabolic alkalosis secondary to chronic hypercapnic respiratory failure, improved Plan: Continues to clinically improve and the patient will be kept on same regimen of medication over the next 24 hours. Immediate smoking cessation counseling was done. BiPAP on and off during the day and overnight Continue bronchodilators Continue Perforomist and Pulmicort and resume his twice a day Continue IV Solu-Medrol Serum bicarb is improved post Diamox administration x 2 doses Titrate oxygen flow to maintain saturation above 90%, currently on 4 L Will continue to follow. DNR/DNI CODE STATUS. Time with Patient: Greater than 30
[2024-12-20 16:48] LABS: Glucose,Whole Blood 203 mg/dL (70-110)
[2024-12-20 20:04] LABS: Glucose,Whole Blood 189 mg/dL (70-110)
--- NOTE | 2024-12-21 06:00 | P.PN ---
Subjective Progress Note Date: 12/20/24 Interval History: History of present illness: 69-year-old male with past medical history significant for severe COPD on 4 L oxygen at baseline, history of cerebral aneurysm status post coiling, gout histo ry of hypertension, hyperlipidemia, MA, history of cardiac catheterization who presented to ER with family for altered mental status, progressively worsening shortness of breath and productive cough. Patient's and daughter at bedside, they reported that patient was very lethargic and somnolent, was unable to arouse. Family reported severe COPD, on 4 L oxygen at baseline, current smoker, does not use CPAP or BiPAP, recently had a cataract surgery. Patient is poor historian, currently on BiPAP. Blood gases in the ED done on 100% oxygen showed pO2 255 pCO2 98, pH 7.12. Home inhalers include albuterol, Spiriva. In addition he uses Brovana, nebulizer machine. Patient follows with c consultant in second. Patient is afebrile, heart rate 79, respiratory rate 13, blood pressure 147/67, saturating 96% on BiPAP with 50% FiO2. WBC 7.3 hemoglobin 11.4 platelet 146. Sodium 132 potassium 5.3 chloride 81 CO2 51 BUN 14 creatinine 0.63. ABG showed pH 7.12, PaCO2 more than 98, PO2 255. Chest x-ray negative for acute process. Urine drug screen positive for marijuana. COVID influenza and RSV PCR negative. 12/18/24--patient was seen and examined today. Patient tolerated BiPAP overnight. Patient was on setting of 12 x 6, 50% FiO2. Patient is DNR limited. Family at bedside including and daughter. Temperature 99.2 F, heart rate 85 respiratory rate 14 blood pressure 177/86, taken off BiPAP, switch to nasal cannula oxygen later in the day. Pulmonary following. 12/19/2024 Patient is seen in follow-up today with pulmonary following closely. Patient is off BiPAP currently wearing 4 L via nasal cannula. Patient continues to be extremely dyspneic with minimal exertion. Patient is being given Diamox over the next 24 hours per pulmonary material coordinator and monitor for further clinical improvements. Patient mentation is somewhat improved today. Encouraged to increase activity as tolerated and recommend PT/OT therapy evaluation as well 12/20/2024 Patient is seen in follow-up currently sitting up in the chair looks much better today. Currently maintained on 4 L and chronically wears this. Patient reports to using BiPAP at night. Pulmonary following patient is maintained on [id number] DuoNebs along with IV steroids and will continue. Plan will be for going home with family on discharge. Patient continues indwelling Irvin catheter and will discontinue and monitor for any retention. Patient is afebrile with no reports of chest pain or worsening shortness of breath. Patient has been tolerating diet with no nausea or vomiting noted. Review of systems: Constitutional: No reports of fatigue, fever, or chills Cardiovascular: No reports of chest pain or palpitations Respiratory:reports of shortness of breath and weak cough but feels slightly improved GI: No reports of nausea, vomiting, or diarrhea : No reports of dysuria or retention Neurovascular: reports of generalized weakness All medications have been reviewed PHYSICAL EXAMINATION: GENERAL: A&O x 3. Ill-appearing. Well-developed, thin build, elderly appearing HEENT: EOMI, Sclerae anicteric, Moist Mucous membranes Neck: Supple, Non tender, No JVD PULMONARY: Equal breath souds B/L, No wheezing, No crackles. Coarse rhonchi noted bilaterally CARDIOVASCULAR: S1, S2 muffled ABDOMEN: Soft, nontender, nondistended, normoactive bowel sounds. No guarding or rebound tenderness. MUSCULOSKELETAL: No edema, No cyanosis. No clubbing. Normal ROM. Intact peripheral pulses. NEUROLOGICAL: CN 2-12 grossly intact. No FND diffusely weak Assessment: Acute on chronic hypoxic hypercapnic respiratory failure: Secondary to severe end-stage COPD Chronic hypoxic respiratory failure on 4 L oxygen at baseline Continued ongoing tobacco use Acute metabolic encephalopathy: Possibly secondary to severe hypercapnia, improved and at baseline History of hypertension Hyperlipidemia Recent cataract surgery History of cerebral aneurysm s/p coiling Gout history Mild protein calorie malnutrition with a BMI of 20.4 DVT prophylaxis GI prophylaxis CODE STATUS no code Plan: Patient is maintained on IV steroids along with [id number] breathing treatments and weaning FiO2 as tolerated. Patient is off BiPAP and using at night intermittently. Patient chronically wears oxygen outpatient and is cur rently maintained on 4 L. Patient will be given Diamox for 24 hours more per pulmonary material coordinator monitor for improvements in respiratory status Encourage increase activity as tolerated Will have PT/OT therapy evaluate the patient. Family at the bedside reports patient will be going home on discharge. Patient is no code The impression and plan of care has been dictated by Bethany Jim, Nurse Practitioner as directed. Dr. Margi MD I have performed a history and examination and MDM of this patient, discussed the same with the dictator, and agree with the dictator's assessment and plan as written ,documented as a scribe. Based on total visit time, I have performed more than 50% of the visit. Objective - Vital Signs Vital signs: Vital Signs Temp 97.4 F L 12/20/24 03:21 Pulse 76 12/20/24 08:15 Resp 18 12/20/24 03:21 BP 151/74 12/20/24 03:21 Pulse Ox 99 12/20/24 03:21 FiO2 50 12/20/24 04:31 Intake & Output 12/19/24 12/20/24 12/20/24 18:59 06:59 18:59 Intake Total 240 10 Output Total 1150 1625 Balance -910 -1615 Weight 63 kg Intake: IV 10 0.9 10 Oral 240 Output: Urine 1150 1625 Other: Voiding Method Indwelling Catheter Indwelling Catheter # Voids 0 # Bowel Movements 0 - Labs CBC & Chem 7: 12/19/24 05:42 12/20/24 06:25 Labs: Abnormal Lab Results - Last 24 Hours (Table) 12/19/24 12/19/24 12/19/24 Range/Units 11:53 16:06 20:15 Chloride (98-107) mmol/L Carbon Dioxide (22-30) mmol/L BUN (9-20) mg/dL Glucose (74-99) mg/dL POC Glucose (mg/dL) 165 H 167 H 409 H (70-110) mg/dL 12/20/24 12/20/24 Range/Units 06:00 06:25 Chloride 91 L (98-107) mmol/L Carbon Dioxide 39 H (22-30) mmol/L BUN 27 H (9-20) mg/dL Glucose 113 H (74-99) mg/dL POC Glucose (mg/dL) 134 H (70-110) mg/dL
[2024-12-21 06:17] LABS: Glucose,Whole Blood 113 mg/dL (70-110)
[2024-12-21 09:32] VITALS: TEMP 98.1
[2024-12-21] MEDS: predniSONE 20 MG TAB PO SCH (11:39)
[2024-12-21 11:42] LABS: Glucose,Whole Blood 126 mg/dL (70-110)
[2024-12-21 12:44] VITALS: BP 109/66; PULSE 74; RESP 17
--- NOTE | 2024-12-21 17:16 | P.PN ---
Subjective Progress Note Date: 12/21/24 69-year-old male with a history of severe COPD. The patient presented to the emergency department, with progressive and worsening shortness of breath, and mental status changes. According to his , he was very lethargic and somnolent, and she could not arouse him. He was brought into the emergency department, to be evaluated, and was seen by Dr. Juarez. The patient had a blood gas done, on 100% oxygen, showing a pO2 of 255, pCO2 of 98, and a pH of 7.12. According to his family, the patient does have very severe COPD. In fact, the patient does smoke still. He does use home oxygen, at 4 L, continuously. He does not use CPAP or BiPAP. The patient recently had cataract surgery as well. In addition to COPD, the patient has a history of a cerebral aneurysm, status post coiling, hypertension, hyperlipidemia, and gout. In terms of his breathing medications, he is on albuterol, and Spiriva. In addition, he uses Brovana, and his nebulizer machine. He does see a line out worker, in [facility]. Current laboratory data includes a white count 7.32, hemoglobin 11.4, hematocrit 36.5, and a platelet count of 146,000. Sodium 132, potassium 5.3, chloride 81, CO2 51, BUN 14, and creatinine 0.63. Glucose is 111. Albumin 3.4. Urine is essentially negative. Drug screen was positive for marijuana. Alcohol less than 10. Viral studies were negative. Chest x-ray was only positive for COPD. No acute abnormalities noted. CT of the brain was negative for anything acute. Progress note dated December 18, 2024. This is a 69-year-old male with a history of end-stage COPD. He was seen in the emergency department yesterday. He continues on BiPAP, with settings of 12/, 50%. Is getting saline at 10 cc an hour. The patient is a DO NOT RESUSCITATE/DO NOT INTUBATE patient. We clarified that yesterday with his and daughter. Current laboratory data includes a white count of 6.3, hemoglobin 10, macro 31.9, and a platelet count of 137,000. Sodium 131, potassium 4.6, chloride 81, CO2 50, BUN 25, creatinine 0.84. Albumin is 3.4. Glucose 139. On 12/19/2024, the patient is being seen for a follow-up. This patient is known to have advanced end-stage COPD. He was hospitalized for an acute exacerbation the patient was supported with a BiPAP pressure of over 6 and remained supp orted. Earlier this morning, the patient was taken off the BiPAP and is currently on 4 L of oxygen nasal cannula. is at the bedside. No signs of any hypercapnia. No sleepiness. Denies having any chest pain. No significant shortness of breath at rest. Remains on bronchodilators. Remains on steroids. No evidence of any pneumonia. The white cell count at 6.7 with a hemoglobin 11.1 and a platelet count of 142. Serum bicarb is at 50 and sodium levels at 133 and a potassium level is at 4.0. Noted initial blood That was done while patient being on a BiPAP showed a pH of 7.12 with a pCO2 of more than 98 and pO2 of 255. The patient is currently on 4 L of O2 nasal cannula. He remains on DuoNeb updrafts. Remains on Perforomist and Pulmicort nebulized treatments twice a day and IV Solu-Medrol 60 mg every 6 hours. No major edema in lower extremities. No other new complaints otherwise for now. On today's evaluation of 12/20/2024, the patient continues to improve. Seems to be less shortness of breath. Will try the BiPAP overnight and the patient is currently on oxygen at 4 L. The patient denies having any chest pain. Shortness of breath is also improving. The patient advanced COPD and he was hospitalized for an acute CF exacerbation. He also had a component of severe metabolic alkalosis, given Diamox and his serum bicarb is currently down to 39. Sodium levels at 138, potassium level is at 3.6 and a chloride is 91. Remains on DuoNeb treatments on the clock. Remains on IV Solu-Medrol. on today's evaluation of 12/21/2024, the patient sitting up in a chair. He remains on 4 L of oxygen by nasal cannula. Seems to be quite comfortable and is doing limited amount of activity in his room. He is able to ambulate. No significant complaints otherwise for now. He remains on IV Solu-Medrol the patient will be taken off the IV Solu-Medrol started on a prednisone burst taper. He is on DuoNeb nebulized treatments [id number]. Is also on a combination of Brovana nebulized twice daily Spiriva 1 puff a day. No new labs are available from today. Oxygenation is stable on 4 L of oxygen by nasal cannula. The patient has no specific complaints. No signs of any altered mental status. No signs of any CO2 narcosis. Objective - Vital Signs Vital signs: Vital Signs Temp 98.1 F 12/21/24 08:00 Pulse 80 12/21/24 08:22 Resp 18 12/21/24 08:00 BP 111/64 12/21/24 08:00 Pulse Ox 91 L 12/21/24 08:00 FiO2 50 12/20/24 04:31 Intake & Output 12/20/24 12/21/24 12/21/24 18:59 06:59 18:59 Intake Total 20 Output Total 420 Balance -400 Weight 63.1 kg Intake: IV 20 Invasive Line 2 20 Output: Urine 420 Other: Voiding Method Indwelling Catheter Urinal Urinal # Voids 1 1 - Exam The patient appeared well nourished and normally developed. Vital signs as documented. The patient is thin and frail. No significant dyspnea at rest. No signs of any CO2 narcosis and the patient's body mass index is 20.4 Head exam is unremarkable. No scleral icterus or corneal arcus noted. Neck is without jugular venous distension, thyromegaly, or carotid bruits. Carotid upstrokes are brisk bilaterally. Lungs are showing marked diminished breath sounds bilaterally. Scattered expiratory wheezes in the exhalation phase is quite prolonged. Cardiac exam reveals the PMI to be normally sized and situated. Rhythm is regular. First and second heart sounds normal. No murmurs, rubs or gallops. Abdominal exam reveals normal bowel sounds, no masses, no organomegaly and no aortic enlargement. Extremities are nonedematous and both femoral and pedal pulses are normal. Examination of the skin revealed no evidence of significant rashes, suspicious appearing nevi or other concerning lesions. Neurologically, the patient is awake and alert and the patient does not have any focal neurological deficit. Cranial nerves are essentially intact. - Labs CBC & Chem 7: 12/19/24 05:42 12/20/24 06:25 Labs: Abnormal Lab Results - Last 24 Hours (Table) 12/20/24 12/20/24 12/20/24 Range/Units 12:06 16:46 20:02 POC Glucose (mg/dL) 135 H 203 H 189 H (70-110) mg/dL 12/21/24 Range/Units 06:16 POC Glucose (mg/dL) 113 H (70-110) mg/dL Assessment and Plan Plan: Acute on chronic hypoxemic and hypercapnic respiratory failure, in a patient with severe end-stage COPD with COPD exacerbation. The patient was supported with the BiPAP and the patient is currently on 4 L of oxygen nasal cannula. No signs of any CO2 narcosis. The patient seems to be much more comfortable and the patient was taken off the BiPAP. No evidence of any pneumonia. Chronic hypoxemic respiratory failure, on home O2 at 4 L. Ongoing tobacco use with nicotine addiction. History of gout. History of hypertension. History of hyperlipidemia. Recent cataract surgery. History of cerebral aneurysm, status post coiling. Severe metabolic alkalosis secondary to chronic hypercapnic respiratory failure, improved Plan: Clinically improved Immediate smoking cessation counseling was done. Discontinued IV Solu-Medrol start the patient on prednisone burst taper Continue bronchodilators Continue Perforomist and Spiriva 2 puffs once a day Titrate oxygen flow to maintain saturation above 90%, currently on 4 L Will continue to follow. DNR/DNI CODE STATUS. May be able to discharge home today to be followed up on outpatient basis. Long-term prognosis remains poor due to his advanced COPD. May benefit from aggressive pulmonary habitation. Counseled for smoking cessation. Continue to follow-up on outpatient basis.
== END 2024-12-21 13:44 | disposition home or self-care (01) | DRG 189 ==
LOC: EC 08:37 → 3SCARD 12:07
PROVIDERS: ADMIT Internal Medicine; ATTEND Internal Medicine
PROC: 5A09457 Assistance with Respiratory Ventilation, 24-96 Consecutive Hours, Continuous Positive Airway Pressure (ICD-10-PCS; principal; 2024-12-17)
DX: J96.22 Acute and chronic respiratory failure with hypercapnia (principal); G93.41 Metabolic encephalopathy; E44.1 Mild protein-calorie malnutrition; E87.4 Mixed disorder of acid-base balance; J44.1 Chronic obstructive pulmonary disease with (acute) exacerbation; I10 Essential (primary) hypertension; Z68.1 Body mass index [BMI] 19.9 or less, adult; E87.3 Alkalosis; J96.21 Acute and chronic respiratory failure with hypoxia; J44.9 Chronic obstructive pulmonary disease, unspecified; Z66 Do not resuscitate; E78.5 Hyperlipidemia, unspecified; F17.210 Nicotine dependence, cigarettes, uncomplicated; M10.9 Gout, unspecified; Z99.81 Dependence on supplemental oxygen; I25.10 Atherosclerotic heart disease of native coronary artery without angina pectoris; I25.2 Old myocardial infarction; Z79.52 Long term (current) use of systemic steroids; Z79.82 Long term (current) use of aspirin; Z79.899 Other long term (current) drug therapy; Z98.42 Cataract extraction status, left eye; Z98.41 Cataract extraction status, right eye
CPT/HCPCS: 36415; 36600; 70450; 71045; 80048; 80053; 80306; 80320; 81001; 82140; 82803; 82805; 84145; 84484; 85025; 85610; 85730; 87636; 93005; 94640; 94660; 96361; 96374; 96375; 99291